=== PATIENT | female | born 1930 | race Hispanic/Latino ===

== ENCOUNTER 2018-06-01 11:56 | Inpatient (IN) | payer MEDICARE ==
--- NOTE | 2018-06-01 12:43 | Emergency Department Report ---
ED Abdominal Pain HPI - General Chief Complaint: Extremity Problem,Nontraumatic Stated Complaint: BACK PAIN Time Seen by Provider: 06/01/18 12:38 Source: patient, EMS Mode of arrival: Stretcher Limitations: No Limitations - History of Present Illness Initial Comments: She is an 88-year-old female that presents to emergency room with complaints of left groin pain and pelvic pain. Patient states pain is radiating to her left thigh. Patient states pain is 10 out of 10. Patient states the pain is worsening. Patient states she is unable to family. Patient states she has had this pain off and on for a few weeks but now is consistent in stopping her from being able to walk. Patient states she needed to get help in order to get to the bathroom. Patient cannot place any pressure on her left leg. Patient came in by EMS due to the pain. MD Complaint: other (groin and pelvic pain) -: Sudden Radiation: LLQ Migration to: no migration Severity: severe Severity scale (0 -10): 10 Quality: stabbing Consistency: constant Improves With: rest Worsens With: movement Associated Symptoms: denies: nausea, vomiting, diarrhea, fever, chills, constipation, dysuria, hematemesis, hematochezia, melena, hematuria, anorexia, syncope Treatments Prior to Arrival: NSAIDs, prescription analgesics - Related Data LMP (females 10-50): other Home Medications Medication Instructions Recorded Confirmed Last Taken Diclofenac EC [Voltaren] 25 mg PO Q8HR 06/01/18 06/01/18 06/01/18 08:00 HYDROcodone/APAP 5-325 [[place] 1 each PO Q8HR PRN 06/01/18 06/01/18 05/31/18 20:00 5/325] chlordiazePOXIDE [Librium] 10 mg PO TID 06/01/18 06/01/18 05/31/18 13:30 traMADol [Ultram] 75 mg PO Q12HR PRN 06/01/18 06/01/18 04/25/18 Allergies Allergy/AdvReac Type Severity Reaction Status Date / Time No Known Allergies Allergy Verified 06/01/18 12:28 ED Review of Systems ROS: Stated complaint: BACK PAIN Other details as noted in HPI Constitutional: denies: chills, fever Eyes: denies: eye pain, eye discharge, vision change ENT: denies: ear pain, throat pain Respiratory: denies: cough, shortness of breath, wheezing Cardiovascular: denies: chest pain, palpitations Endocrine: no symptoms reported Gastrointestinal: abdominal pain. denies: nausea, diarrhea Genitourinary: denies: urgency, dysuria, discharge Musculoskeletal: denies: back pain, joint swelling, arthralgia Skin: denies: rash, lesions Neurological: denies: headache, weakness, paresthesias Psychiatric: denies: anxiety, depression Hematological/Lymphatic: denies: easy bleeding, easy bruising ED Past Medical Hx - Past Medical History Previous Medical History?: Yes Hx Hypertension: Yes - Surgical History Past Surgical History?: Yes Hx Cholecystectomy: Yes Hx Appendectomy: Yes Additional Surgical History: Hx of tachycardia. - Social History Smoking Status: Current Every Day Smoker Substance Use Type: None - Medications Home Medications: Home Medications Medication Instructions Recorded Confirmed Last Taken Type Diclofenac EC [Voltaren] 25 mg PO Q8HR 06/01/18 06/01/18 06/01/18 08:00 History HYDROcodone/APAP 5-325 [[place] 1 each PO Q8HR PRN 06/01/18 06/01/18 05/31/18 20:00 History 5/325] chlordiazePOXIDE [Librium] 10 mg PO TID 06/01/18 06/01/18 05/31/18 13:30 History traMADol [Ultram] 75 mg PO Q12HR PRN 06/01/18 06/01/18 04/25/18 History ED Physical Exam - General Limitations: No Limitations General appearance: alert, in no apparent distress - Head Head exam: Present: atraumatic, normocephalic - Eye Eye exam: Present: normal appearance - ENT ENT exam: Present: mucous membranes moist - Neck Neck exam: Present: normal inspection - Respiratory Respiratory exam: Present: normal lung sounds bilaterally. Absent: respiratory distress - Cardiovascular Cardiovascular Exam: Present: regular rate, normal rhythm. Absent: systolic murmur, diastolic murmur, rubs, gallop - GI/Abdominal GI/Abdominal exam: Present: soft, tenderness (left pelvic tenderness on palpation and left hip tenderness), normal bowel sounds - Extremities Exam Extremities exam: Present: normal inspection - Back Exam Back exam: Present: normal inspection - Neurological Exam Neurological exam: Present: alert, oriented X3 - Psychiatric Psychiatric exam: Present: normal affect, normal mood - Skin Skin exam: Present: warm, dry, intact, normal color. Absent: rash ED Course Vital Signs 06/01/18 06/01/18 06/01/18 12:00 12:11 12:15 Temperature 97.9 F Pulse Rate 78 77 Respiratory 25 H 22 20 Rate Blood Pressure 127/67 148/61 Blood Pressure 127/67 [Right] O2 Sat by Pulse 100 100 100 Oximetry 06/01/18 06/01/18 06/01/18 12:30 12:45 13:00 Temperature Pulse Rate 75 71 71 Respiratory 18 15 19 Rate Blood Pressure 152/58 161/63 158/59 Blood Pressure [Right] O2 Sat by Pulse 99 99 96 Oximetry 06/01/18 06/01/18 06/01/18 13:15 13:30 13:45 Temperature Pulse Rate 75 75 71 Respiratory 23 21 16 Rate Blood Pressure 149/58 142/61 149/56 Blood Pressure [Right] O2 Sat by Pulse 97 97 93 Oximetry 06/01/18 06/01/18 06/01/18 14:00 14:15 14:27 Temperature 97.9 F Pulse Rate 76 76 76 Respiratory 20 14 14 Rate Blood Pressure 131/59 144/69 Blood Pressure 144/69 [Right] O2 Sat by Pulse 97 96 96 Oximetry 06/01/18 06/01/18 06/01/18 16:29 16:30 16:45 Temperature Pulse Rate 78 74 75 Respiratory 17 16 20 Rate Blood Pressure 145/60 145/60 145/60 Blood Pressure 139/69 [Right] O2 Sat by Pulse 98 94 96 Oximetry 06/01/18 06/01/18 06/01/18 17:00 17:15 17:30 Temperature Pulse Rate 76 81 84 Respiratory 16 14 13 Rate Blood Pressure 155/70 155/70 139/69 Blood Pressure [Right] O2 Sat by Pulse 97 98 97 Oximetry 06/01/18 18:00 Temperature 97.9 F Pulse Rate 84 Respiratory 13 Rate Blood Pressure Blood Pressure 139/69 [Right] O2 Sat by Pulse 97 Oximetry - Reevaluation(s) Reevaluation #1: Discussed all results with patient. Patient admitted to the hospital service. Patient agrees with plan of care. 06/01/18 16:16 - Consultations Consultation #1: Hospice consultation for admission. Hospitalist to admit patient 06/01/18 16:17 ED Medical Decision Making - Lab Data Result diagrams: 06/01/18 13:30 06/01/18 13:30 - Radiology Data Radiology results: report reviewed CT ABDOMEN AND PELVIS WITH CONTRAST INDICATION: Abdominal pain. COMPARISON: None similar at this institution. FINDINGS: Abdomen and pelvis CT performed following intravenous administration of 100 cc of Omnipaque 300. LUNG BASES: Increased AP chest diameter/COPD. Mild left basilar scarring or atelectasis. Approximately 2.8 cm right lower lobe consolidation posteriorly also noted, axial image 34, series 2, nonspecific for scarring/atelectasis versus an underlying mass. Coronary and aortic atherosclerotic calcifications. Mild nonspecific distal esophageal prominence/thickening. ABDOMEN: Post cholecystectomy biliary tree appearance/prominence with CBD caliber at the lacey hepatis approximately 1 cm. Otherwise unremarkable liver, spleen, pancreas, adrenals, IVC and nonhydronephrotic kidneys. Few left upper to mid renal cortical hypodensities measuring up to 0.7 cm. Nonaneurysmal though slightly ectatic mid to distal abdominal aorta with diffuse atherosclerotic aortoiliac calcifications. No ascites or size significant adenopathy. Nonopacified GI tract evaluation limited, though grossly nonobstructive. Small fat containing umbilical hernia with a transverse neck of 7 mm. Appendectomy changes in the right lower quadrant. Mild distal descending colon/proximal sigmoid diverticulosis. PELVIS: Rectosigmoid stool. Unremarkable urinary bladder and grossly age-appropriate uterus. No free fluid or significant adenopathy. Bilateral inguinal canal region fatty hernia-like prominence with approximately 3.4 cm diameter as on axial image 173, series 2. Subtle asymmetric stranding/prominence noted along the left obturator internus as also the left acetabulum medially as on axial images 153-173. Demineralized bones with multilevel spinal degenerative changes, including lower thoracic spurring and lower lumbar facet arthropathy. However, a large lytic hyperdense lesion involves/replaces the left acetabulum posteroinferiorly up to the ischial tuberosity as on axial images 155-185. It measures approximately 3.8 x 3.9 cm as on axial image 169, series 2 and approximately 6.2 cm craniocaudal and also demonstrates a small soft tissue component inferiorly. CONCLUSION: 1. Large lytic lesion involving/replacement of the left posterior acetabulum and ischium inferiorly up to the ischial tuberosity, as detailed above. Metastatic/neoplastic process primarily suspected and may also be correlated for clinically and with prior relevant imaging, if available. 2. Right lung base masslike consolidation in the lower lobe posteriorly also seen, nonspecific for benign scarring versus neoplasm, though latter remains to be excluded in light of above findings. These would also be amenable to percutaneous biopsy or workup further as with PET-CT, as warranted. 3. No acute abdominal CT abnormality with various other incidental findings, as described. - Medical Decision Making Patient is an 88-year-old female that presents to [facility] with extreme left pelvic and hip pain. Patient found to have a lytic lesion on CT scan. Patient admitted to the hospitalist service. Patient found to have a pulmonary nodule.. She came is unable to ambulate. Patient wants to be admitted. patient to be admitted to the hospitalist service. - Differential Diagnosis unable to ambulate. The pain. Hip pain. Leg pain. Critical care attestation.: If time is entered above; I have spent that time in minutes in the direct care of this critically ill patient, excluding procedure time. ED Disposition Clinical Impression: Unable to ambulate, Pelvic pain, Lytic lesion of bone on x-ray, Intractable abdominal pain Leg pain Qualifiers: Laterality: left Qualified Code(s): M79.605 - Pain in left leg Disposition: OP ADMIT IP TO THIS HOSP Is pt being admited?: Yes Does the pt Need Aspirin: No Condition: Serious Time of Disposition: 16:20
[2018-06-01 13:41] LABS: Bacteria,Urine 1+ /HPF (Negative); Bilirubin,Urine NEG (Negative); Blood,Urine NEG (Negative); Color,Urine Yellow (Yellow); Protein,Urine <15 mg/dL mg/dL (Negative); RBC,Urine < 1.0 /HPF (0.0-6.0); Urobilinogen,Urine < 2.0 mg/dL (<2.0)
[2018-06-01 13:42] LABS: Basophils # (Auto) 0.1 K/mm3 (0.0-0.1); Basophils % (Auto) 1.2 % (0.0-1.8); Eosinophils # (Auto) 0.1 K/mm3 (0.0-0.4); Eosinophils % (Auto) 1.3 % (0.0-4.3); Hematocrit 43.9 % (30.3-42.9); Hemoglobin 14.8 gm/dl (10.1-14.3); Lymphocytes # (Auto) 1.5 K/mm3 (1.2-5.4); Lymphocytes % (Auto) 13.3 % (13.4-35.0); Mean Corpuscular HGB Conc 34 % (30-34); Mean Corpuscular Volume 84 fl (79-97); Monocytes # (Auto) 1.1 K/mm3 (0.0-0.8); Monocytes % (Auto) 9.6 % (0.0-7.3); Platelet Count 424 K/mm3 (140-440); Red Blood Count 5.23 M/mm3 (3.65-5.03); Red Cell Distribution Width 14.4 % (13.2-15.2)
[2018-06-01 14:00] LABS: Alanine Aminotransferase 40 units/L (7-56); Albumin 3.9 g/dL (3.9-5); BUN/Creatinine Ratio 22; Bilirubin,Direct < 0.2 mg/dL (0-0.2); Blood Urea Nitrogen 13 mg/dL (7-17); Hemolysis Index 8
--- NOTE | 2018-06-01 15:04 | Cat Scan Report ---
CT ABDOMEN AND PELVIS WITH CONTRAST INDICATION: Abdominal pain. COMPARISON: None similar at this institution. FINDINGS: Abdomen and pelvis CT performed following intravenous administration of 100 cc of Omnipaque 300. LUNG BASES: Increased AP chest diameter/COPD. Mild left basilar scarring or atelectasis. Approximately 2.8 cm right lower lobe consolidation posteriorly also noted, axial image 34, series 2, nonspecific for scarring/atelectasis versus an underlying mass. Coronary and aortic atherosclerotic calcifications. Mild nonspecific distal esophageal prominence/thickening. ABDOMEN: Post cholecystectomy biliary tree appearance/prominence with CBD caliber at the lacey hepatis approximately 1 cm. Otherwise unremarkable liver, spleen, pancreas, adrenals, IVC and nonhydronephrotic kidneys. Few left upper to mid renal cortical hypodensities measuring up to 0.7 cm. Nonaneurysmal though slightly ectatic mid to distal abdominal aorta with diffuse atherosclerotic aortoiliac calcifications. No ascites or size significant adenopathy. Nonopacified GI tract evaluation limited, though grossly nonobstructive. Small fat containing umbilical hernia with a transverse neck of 7 mm. Appendectomy changes in the right lower quadrant. Mild distal descending colon/proximal sigmoid diverticulosis. PELVIS: Rectosigmoid stool. Unremarkable urinary bladder and grossly age-appropriate uterus. No free fluid or significant adenopathy. Bilateral inguinal canal region fatty hernia-like prominence with approximately 3.4 cm diameter as on axial image 173, series 2. Subtle asymmetric stranding/prominence noted along the left obturator internus as also the left acetabulum medially as on axial images 153-173. Demineralized bones with multilevel spinal degenerative changes, including lower thoracic spurring and lower lumbar facet arthropathy. However, a large lytic hyperdense lesion involves/replaces the left acetabulum posteroinferiorly up to the ischial tuberosity as on axial images 155-185. It measures approximately 3.8 x 3.9 cm as on axial image 169, series 2 and approximately 6.2 cm craniocaudal and also demonstrates a small soft tissue component inferiorly. CONCLUSION: 1. Large lytic lesion involving/replacement of the left posterior acetabulum and ischium inferiorly up to the ischial tuberosity, as detailed above. Metastatic/neoplastic process primarily suspected and may also be correlated for clinically and with prior relevant imaging, if available. 2. Right lung base masslike consolidation in the lower lobe posteriorly also seen, nonspecific for benign scarring versus neoplasm, though latter remains to be excluded in light of above findings. These would also be amenable to percutaneous biopsy or workup further as with PET-CT, as warranted. 3. No acute abdominal CT abnormality with various other incidental findings, as described. Thank you for the opportunity to participate in this patient's care.
[2018-06-02] MEDS ORDERED: TYLENOL PO PRN ×2 (01:47→06:53)
[2018-06-02] MEDS ORDERED: SODIUM CHLORIDE FLUSH SYRINGE 10 ML IV PRN (06:53)
--- NOTE | 2018-06-02 06:58 | Event Note ---
Date: 06/01/18 See H/p in reports Lytic lesion L Hip Lung mass
[2018-06-02] MEDS ORDERED: NACL 0.9% 1000 ML 1,000 ML IV SCH (07:00)
[2018-06-02 07:27] LABS: Basophils # (Auto) 0.2 K/mm3 (0.0-0.1); Basophils % (Auto) 1.5 % (0.0-1.8); Eosinophils # (Auto) 0.6 K/mm3 (0.0-0.4); Hematocrit 42.3 % (30.3-42.9); Lymphocytes # (Auto) 2.2 K/mm3 (1.2-5.4); Lymphocytes % (Auto) 18.4 % (13.4-35.0); Mean Corpuscular HGB Conc 33 % (30-34); Mean Corpuscular Volume 85 fl (79-97); Monocytes # (Auto) 1.2 K/mm3 (0.0-0.8); Platelet Count 422 K/mm3 (140-440); Red Blood Count 4.95 M/mm3 (3.65-5.03); Red Cell Distribution Width 14.8 % (13.2-15.2)
--- NOTE | 2018-06-02 07:31 | Progress Note ---
Assessment and Plan Assessment and plan: Patient is a 88 yo woman with history of OA, hypertension, chronic tachycardia and Tobacco dependency who presented to [facility] ED (first visit in EMR) with left groin pains and inability to ambulate hence the inpatient admission. He was found to have the following: * CT abd/pelvis with contrast CONCLUSION: 1. Large lytic lesion involving/replacement of the left posterior acetabulum and ischium inferiorly up to the ischial tuberosity, as detailed above. Metastatic/neoplastic process primarily suspected and may also be correlated for clinically and with prior relevant imaging, if available. 2. Right lung base masslike (2.8 cm) consolidation in the lower lobe posteriorly also seen, nonspecific for benign scarring versus neoplasm, though latter remains to be excluded in light of above findings. These would also be amenable to percutaneous biopsy or workup further as with PET-CT, as warranted. 3. No acute abdominal CT abnormality with various other incidental findings, as described. 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 Sanches Heme/Onc=-=>consult Dr. Jones -SIRS with organ dysfunction, poa from suspect metastatic cancer -Hyponatremia due the dehydration: treat with IVF -Metabolic acidosis, due to above -Suspect RLL Lung cancer: Consult and d/w Heme/Onc or pulmonary, on empiric levaquin for pna, add IVF for renal protection due to contrast dye administrati on. 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 Follow-up on current diagnosis of Left groin pains. Overnight uneventful. Patient denies any chest pain, shortness breath, nausea/vomiting or severe headaches. Imaging, nursing note, chart, labs and old chart reviewed. Discussed with patient. Hospitalist Physical - Physical exam Narrative exam: Gen: WDWN, NAD, Awake, Alert, Orientated HEENT: NCAT, EOMI, PERRL, OP Clear Neck: supple, no adenopathy, no thyromegaly, no JVD CVS/Heart: RRR, normal S1S2, pulses present bilaterally Chest/Lungs: diminished bs bilateral, Symmetrical chest expansion, good air entry bilaterally GI/Abdomen: soft, NTND, good bowel sounds, no guarding or rebound /Bladder: no suprapubic tenderness, no CVA or paraspinal tenderness Extermity/Skin: no c/c/e, no obvious rash MSK: FROM x 4 Neuro: CN 2-12 grossly intact, no new focal deficits Psych: calm - Constitutional Vitals: Temp Pulse Resp BP Pulse Ox 97.9 F 84 20 145/64 95 06/02/18 02:45 06/02/18 02:45 06/02/18 02:45 06/02/18 02:45 06/02/18 02:45 Results - Labs CBC & Chem 7: 06/02/18 07:18 06/02/18 07:18 Labs: Laboratory Last Values WBC 11.1 K/mm3 (4.5-11.0) H 06/01/18 13:30 RBC 5.23 M/mm3 (3.65-5.03) H 06/01/18 13:30 Hgb 14.8 gm/dl (10.1-14.3) H 06/01/18 13:30 Hct 43.9 % (30.3-42.9) H 06/01/18 13:30 MCV 84 fl (79-97) 06/01/18 13:30 MCH 28 pg (28-32) 06/01/18 13:30 MCHC 34 % (30-34) 06/01/18 13:30 RDW 14.4 % (13.2-15.2) 06/01/18 13:30 Plt Count 424 K/mm3 (140-440) 06/01/18 13:30 Lymph % (Auto) 13.3 % (13.4-35.0) L 06/01/18 13:30 Saunders % (Auto) 9.6 % (0.0-7.3) H 06/01/18 13:30 Eos % (Auto) 1.3 % (0.0-4.3) 06/01/18 13:30 Baso % (Auto) 1.2 % (0.0-1.8) 06/01/18 13:30 Lymph # 1.5 K/mm3 (1.2-5.4) 06/01/18 13:30 Saunders # 1.1 K/mm3 (0.0-0.8) H 06/01/18 13:30 Eos # 0.1 K/mm3 (0.0-0.4) 06/01/18 13:30 Baso # 0.1 K/mm3 (0.0-0.1) 06/01/18 13:30 Seg Neutrophils % 74.6 % (40.0-70.0) H 06/01/18 13:30 Seg Neutrophils # 8.3 K/mm3 (1.8-7.7) H 06/01/18 13:30 Sodium 134 mmol/L (137-145) L 06/01/18 13:30 Potassium 3.8 mmol/L (3.6-5.0) 06/01/18 13:30 Chloride 97.6 mmol/L (98-107) L 06/01/18 13:30 Carbon Dioxide 20 mmol/L (22-30) L 06/01/18 13:30 Anion Gap 20 mmol/L 06/01/18 13:30 BUN 13 mg/dL (7-17) 06/01/18 13:30 Creatinine 0.6 mg/dL (0.7-1.2) L 06/01/18 13:30 Estimated GFR > 60 ml/min 06/01/18 13:30 BUN/Creatinine Ratio 22 % 06/01/18 13:30 Glucose 92 mg/dL (65-100) 06/01/18 13:30 Calcium 10.0 mg/dL (8.4-10.2) 06/01/18 13:30 Total Bilirubin 0.40 mg/dL (0.1-1.2) 06/01/18 13:30 Direct Bilirubin < 0.2 mg/dL (0-0.2) 06/01/18 13:30 AST 32 units/L (5-40) 06/01/18 13:30 ALT 40 units/L (7-56) 06/01/18 13:30 Alkaline Phosphatase 130 units/L (35-129) H 06/01/18 13:30 Total Protein 7.5 g/dL (6.3-8.2) 06/01/18 13:30 Albumin 3.9 g/dL (3.9-5) 06/01/18 13:30 Albumin/Globulin Ratio 1.1 % 06/01/18 13:30 Urine Color Yellow (Yellow) 06/01/18 13:10 Urine Turbidity Slightly-cloudy (Clear) 06/01/18 13:10 Urine pH 7.0 (5.0-7.0) 06/01/18 13:10 Ur Specific Marshall 1.004 (1.003-1.030) 06/01/18 13:10 Urine Protein <15 mg/dl mg/dL (Negative) 06/01/18 13:10 Urine Glucose (UA) Neg mg/dL (Negative) 06/01/18 13:10 Urine Ketones Tr mg/dL (Negative) 06/01/18 13:10 Urine Blood Neg (Negative) 06/01/18 13:10 Urine Nitrite Neg (Negative) 06/01/18 13:10 Urine Bilirubin Neg (Negative) 06/01/18 13:10 Urine Urobilinogen < 2.0 mg/dL (<2.0) 06/01/18 13:10 Ur Leukocyte Esterase Tr (Negative) 06/01/18 13:10 Urine WBC (Auto) 2.0 /HPF (0.0-6.0) 06/01/18 13:10 Urine RBC (Auto) < 1.0 /HPF (0.0-6.0) 06/01/18 13:10 U Epithel Cells (Auto) 14.0 /HPF (0-13.0) H 06/01/18 13:10 Urine Bacteria (Auto) 1+ /HPF (Negative) 06/01/18 13:10
--- NOTE | 2018-06-02 07:33 | History and Physical Report ---
CHIEF COMPLAINT: Left hip pain for a couple of days. HISTORY OF PRESENT ILLNESS: An 88-year-old female brought to the Emergency Room by the for inability to walk. Also, pain in the left hip, about 10/ 10. The patient used to walk until a couple of weeks ago. Since then, the patient has stopped walking. Needs help in getting around to the bathroom. For the last 2 days, unable to walk totally. Pain is 10/10 in the left hip region. No fall. No trauma. PAST MEDICAL HISTORY: Significant for hypertension. PAST SURGICAL HISTORY: Cholecystectomy and appendectomy. SOCIAL HISTORY: Smokes regularly, about half a pack a day. FAMILY HISTORY: Hypertension. REVIEW OF SYSTEMS: Significant for severe left hip pain, 10/10 and inability to walk for the last 2 days. Difficulty walking for the last 2-3 weeks. PHYSICAL EXAMINATION: GENERAL: Elderly female, lying in bed, in no acute distress. VITAL SIGNS: Blood pressure is 139/69, temperature is 97.9, pulse is 84, respirations are 13. HEENT: Unremarkable. Pupils are equal and reactive. NECK: Supple, no lymphadenopathy, no thyromegaly. LUNGS: Clear to auscultation and percussion. Good air entry. CARDIOVASCULAR: S1, S2 heard. No gallop, no murmur, no rub. Apical impulse in left fifth intercostal space and midclavicular line. ABDOMEN: Soft and benign. No hepatosplenomegaly. No guarding, no rigidity. Hernial orifices are normal. EXTREMITIES: Decreased range of motion at the left hip joint. Pulses are well felt. CENTRAL NERVOUS SYSTEM: Alert and oriented x 4. LABORATORY DATA: Significant for white count of 11,100, H and H is 14.8 and 43.9, platelet count is 424,000. Sodium is 134, potassium is 3.8, BUN and creatinine 13 and 0.6, alkaline phosphatase is 130. Urine is negative. Epithelial cells 14.0. CT of the abdomen and pelvis shows large lytic lesion involving the left posterior acetabulum and it came inferiorly after ischial tuberosity and metastatic by neoplastic process primarily suspected and may also be correlated for clinically and with prior relevant imaging if available. Right lung base mass-like consolidation in the lower lobe posteriorly. Nonspecific for benign scarring versus neoplasm. These should also be amenable for percutaneous biopsy or workup further with PET scan. CT as warranted. No acute abdominal CAT scan or CT abnormality. ASSESSMENT AND PLAN: 1. Left hip lytic lesion, possible high probability of cancer, primary versus metastatic lesion. Orthopedic consult requested. Pain management for now. 2. Lung mass. A CT of the chest ordered for further delineation of the cancer. 3. 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 The lung mass may be amenable for first the CT chest and then the CT-guided biopsy. 4. Hypertension. Continue antihypertensives. 5. Pain control. Continue pain management. 6. Deep venous thrombosis prophylaxis, Lovenox 40 mg subcutaneous daily. Orthopedics and Oncology consult requested. JOB# [id number] JEFF/LOPEZ MCMILLAN
[2018-06-02 07:56] LABS: Alanine Aminotransferase 30 units/L (7-56); Albumin 3.6 g/dL (3.9-5); BUN/Creatinine Ratio 20; Blood Urea Nitrogen 12 mg/dL (7-17); Calcium 10.2 mg/dL (8.4-10.2); Hemolysis Index 13
[2018-06-02] MEDS ORDERED: DUONEB *Not for PRN Use IH SCH ×2 (08:00)
[2018-06-02] MEDS: DILAUDID IV PRN (08:34)
[2018-06-02] MEDS: LEVAQUIN 750MG/150ML 750 MG/150 ML BAG IV SCH (08:34)
[2018-06-02] MEDS: NACL 0.9% 1000 ML 1,000 ML IV SCH (08:44)
[2018-06-02] MEDS ORDERED: PROVENTIL IH PRN (09:21)
[2018-06-02] MEDS ORDERED: PEPCID PO SCH (10:00)
[2018-06-02] MEDS ORDERED: LEVAQUIN 750MG/150ML 750 MG/150 ML BAG IV SCH (10:00)
[2018-06-02] MEDS: SODIUM CHLORIDE FLUSH SYRINGE 10 ML IV SCH ×2 (10:05→23:13)
[2018-06-02] MEDS: PEPCID PO SCH ×2 (10:05→23:10)
[2018-06-02] MEDS ORDERED: AFLURIA QUAD 2018-2019 SYRINGE IM ONE (12:00)
--- NOTE | 2018-06-02 13:31 | Consultation ---
History of Present Illness - HPI Consult date: 06/02/18 Consult reason: joint pain History of present illness: 88 y/o female with c/o left groin pain, and hx of CA...asked to evaluate regarding CT scan findings from pelvis Medications and Allergies Allergies Allergy/AdvReac Type Severity Reaction Status Date / Time No Known Allergies Allergy Verified 06/01/18 12:28 Home Medications Medication Instructions Recorded Confirmed Last Taken Type Diclofenac EC [Voltaren] 25 mg PO Q8HR 06/01/18 06/01/18 06/01/18 08:00 History HYDROcodone/APAP 5-325 [[place] 1 each PO Q8HR PRN 06/01/18 06/01/18 05/31/18 20:00 History 5/325] chlordiazePOXIDE [Librium] 10 mg PO TID 06/01/18 06/01/18 05/31/18 13:30 History traMADol [Ultram] 75 mg PO Q12HR PRN 06/01/18 06/01/18 04/25/18 History Active Meds: Active Medications Acetaminophen (Tylenol) 650 mg PO Q4H PRN PRN Reason: Pain MILD(1-3)/Fever >100.5/GAMA Albuterol (Proventil) 2.5 mg IH Q4HRT PRN PRN Reason: Shortness Of Breath Albuterol/Ipratropium (Duoneb *Not For Prn Use*) 1 ampul IH TIDRT [facility] Enoxaparin Sodium (Lovenox) 40 mg SUB-Q QDAY@2200 [facility] Famotidine (Pepcid) 10 mg PO BID [facility] Last Admin: 06/02/18 10:05 Dose: 10 mg Documented by: Hydromorphone HCl (Dilaudid) 0.5 mg IV Q3H PRN PRN Reason: Pain , Severe (7-10) Last Admin: 06/02/18 08:34 Dose: 0.5 mg Documented by: Levofloxacin/Dextrose (Levaquin 750mg/150ml) 750 mg in 150 mls @ 100 mls/hr IV Q24H [facility]; Protocol Last Admin: 06/02/18 08:34 Dose: 100 mls/hr Documented by: Sodium Chloride (Nacl 0.9% 1000 Ml) 1,000 mls @ 100 mls/hr IV DIRECT [facility] Last Admin: 06/02/18 08:44 Dose: 100 mls/hr Documented by: Ondansetron HCl (Zofran) 4 mg IV Q8H PRN PRN Reason: Nausea And Vomiting Oxycodone/Acetaminophen (Percocet 5/325) 1 tab PO Q6H PRN PRN Reason: Pain, Moderate (4-6) Sodium Chloride (Sodium Chloride Flush Syringe 10 Ml) 10 ml IV BID [facility] Last Admin: 06/02/18 10:05 Dose: 10 ml Documented by: Sodium Chloride (Sodium Chloride Flush Syringe 10 Ml) 10 ml IV PRN PRN PRN Reason: LINE FLUSH Physical Examination - Physical exam Narrative exam: left hip - decreased passive ROM, tender at groin area, no swelling palpable, distal n/v intact plain xrays pelvis - lytic lesion seen at left ischium Eyes: PERRL ENT: Positive: clear oral mucosa Respiratory effort: normal Respiratory: bilateral: CTA Rhythm: regular Heart Sounds: Positive: S1 & S2 General gastrointestinal: Positive: soft, non-tender, non-distended, normal bowel sounds Integumentary: clear, warm, dry Neurologic: Positive: CNII-XII intact, moves all extremities, gait normal. Negative: focal deficits - Cervical Spine Neck pain: none Tenderness with palpation: none Full ROM: yes ROM: flexion: normal ROM: extension: normal ROM: rotation right: normal ROM: rotation left: normal ROM: lateral flexion right: normal ROM: lateral flexion left: normal - Lumbar Spine Back pain: none Tenderness with palpation: none Appearance: normal Full ROM: yes ROM: flexion: normal ROM: extension: normal ROM: rotation right: normal ROM: rotation left: normal ROM: lateral flexion right: normal ROM: lateral flexion left: normal Assessment and Plan assesment - bony lytic lesion at left ischium, non-weight bearing portion, femoral head and acetabulum ok recommendation - can mobilize with PT, WBAT left lower extremity
--- NOTE | 2018-06-02 13:36 | XRay Report ---
PELVIS RADIOGRAPH INDICATION: Lytic lesions on CT. COMPARISON: Yesterday's CT. FINDINGS: Single, frontal pelvic radiograph suggests left superior pubic ramus fracture, retrospectively confirmed on CT coronal image 73. Large, approximately 4 cm expansile lytic lesion involving the posteroinferior acetabulum and ischium on the left, extending up to the ischial tuberosity may again be present, though subtle/occult plain radiographically. Mild bilateral acetabular corner degenerative spurring laterally. Intact remainder pelvic articulation, including the hip joints. Normal femoral head contours. Few right hemipelvic surgical clips project over the right SI joint. Nonobstructive bowel gas pattern. Rectosigmoid stool/possible constipation. Lower lumbar degenerative changes. CONCLUSION: 1. Subtle left acetabular fracture noted and may be acute in this patient with known left ischial lytic lesion, as detailed above. 2. Few other findings, as above. Thank you for the opportunity to participate in this patient's care.
--- NOTE | 2018-06-02 14:04 | Consultation ---
History of Present Illness - Reason for Consult Consult date: 06/02/18 lung mass - History of Present Illness Patient is an 88-year-old female who presented with left hip pain and leg pain and was found to have a lytic lesion involving left acetabulum. Patient is artery been seen by orthopedic surgery as well as radiation oncology. On her scan of the abdomen and pelvis, an area of abnormality was found the posterior pleural service of the patient's right lower lung. This has the appearance of rounded atelectasis. However, given the patient's left hip neoplasm, a lung biopsy was ordered. Medications and Allergies Allergies Allergy/AdvReac Type Severity Reaction Status Date / Time No Known Allergies Allergy Verified 06/01/18 12:28 Home Medications Medication Instructions Recorded Confirmed Last Taken Type Diclofenac EC [Voltaren] 25 mg PO Q8HR 06/01/18 06/01/18 06/01/18 08:00 History HYDROcodone/APAP 5-325 [[place] 1 each PO Q8HR PRN 06/01/18 06/01/18 05/31/18 20:00 History 5/325] chlordiazePOXIDE [Librium] 10 mg PO TID 06/01/18 06/01/18 05/31/18 13:30 History traMADol [Ultram] 75 mg PO Q12HR PRN 06/01/18 06/01/18 04/25/18 History Active Meds: Active Medications Acetaminophen (Tylenol) 650 mg PO Q4H PRN PRN Reason: Pain MILD(1-3)/Fever >100.5/GAMA Albuterol (Proventil) 2.5 mg IH Q4HRT PRN PRN Reason: Shortness Of Breath Albuterol/Ipratropium (Duoneb *Not For Prn Use*) 1 ampul IH TIDRT [facility] Enoxaparin Sodium (Lovenox) 40 mg SUB-Q QDAY@2200 [facility] Famotidine (Pepcid) 10 mg PO BID [facility] Last Admin: 06/02/18 10:05 Dose: 10 mg Documented by: Hydromorphone HCl (Dilaudid) 0.5 mg IV Q3H PRN PRN Reason: Pain , Severe (7-10) Last Admin: 06/02/18 08:34 Dose: 0.5 mg Documented by: Levofloxacin/Dextrose (Levaquin 750mg/150ml) 750 mg in 150 mls @ 100 mls/hr IV Q24H [facility]; Protocol Last Admin: 06/02/18 08:34 Dose: 100 mls/hr Documented by: Sodium Chloride (Nacl 0.9% 1000 Ml) 1,000 mls @ 100 mls/hr IV DIRECT [facility] Last Admin: 06/02/18 08:44 Dose: 100 mls/hr Documented by: Ondansetron HCl (Zofran) 4 mg IV Q8H PRN PRN Reason: Nausea And Vomiting Oxycodone/Acetaminophen (Percocet 5/325) 1 tab PO Q6H PRN PRN Reason: Pain, Moderate (4-6) Sodium Chloride (Sodium Chloride Flush Syringe 10 Ml) 10 ml IV BID [facility] Last Admin: 06/02/18 10:05 Dose: 10 ml Documented by: Sodium Chloride (Sodium Chloride Flush Syringe 10 Ml) 10 ml IV PRN PRN PRN Reason: LINE FLUSH Review of Systems All systems: negative Exam - Constitutional Vitals: Temp Pulse Resp BP Pulse Ox 98.0 F 80 18 166/68 95 06/02/18 07:37 06/02/18 10:00 06/02/18 09:35 06/02/18 07:37 06/02/18 09:35 General appearance: Present: no acute distress - EENT Eyes: Present: PERRL, EOM intact ENT: hearing intact - Neck Neck: Present: supple, normal ROM - Respiratory Respiratory effort: normal - Abdominal General gastrointestinal: Present: deferred Female genitourinary: Present: deferred - Rectal Rectal Exam: deferred - Psychiatric Psychiatric: appropriate mood/affect, cooperative Results - Labs CBC & Chem 7: 06/02/18 07:18 06/02/18 07:18 Labs: Abnormal lab results 06/01/18 06/02/18 06/02/18 Range/Units 13:30 07:18 07:18 WBC (4.5-11.0) K/mm3 [place] % (Auto) (0.0-7.3) % Eos % (Auto) (0.0-4.3) % [place] # (0.0-0.8) K/mm3 Eos # (0.0-0.4) K/mm3 Baso # (0.0-0.1) K/mm3 Seg Neutrophils # (1.8-7.7) K/mm3 Sodium 134 L 134 L (137-145) mmol/L Chloride 97.6 L (98-107) mmol/L Carbon Dioxide 20 L 21 L (22-30) mmol/L Creatinine 0.6 L 0.6 L (0.7-1.2) mg/dL Hemoglobin A1c 6.2 H (4-6) % Alkaline Phosphatase 130 H (35-129) units/L Albumin 3.6 L (3.9-5) g/dL 06/02/18 Range/Units 07:18 WBC 12.1 H (4.5-11.0) K/mm3 [place] % (Auto) 10.0 H (0.0-7.3) % Eos % (Auto) 5.0 H (0.0-4.3) % [place] # 1.2 H (0.0-0.8) K/mm3 Eos # 0.6 H (0.0-0.4) K/mm3 Baso # 0.2 H (0.0-0.1) K/mm3 Seg Neutrophils # 7.9 H (1.8-7.7) K/mm3 Sodium (137-145) mmol/L Chloride (98-107) mmol/L Carbon Dioxide (22-30) mmol/L Creatinine (0.7-1.2) mg/dL Hemoglobin A1c (4-6) % Alkaline Phosphatase (35-129) units/L Albumin (3.9-5) g/dL - Imaging and Cardiology CT scan - abdomen: report reviewed, image reviewed CT scan - pelvis: report reviewed, image reviewed Assessment and Plan Patient with a history of left hip lytic lesion and abnormalities in the right lung base. The patient will need a CT scan of her chest with IV contrast. The imaging findings are most consistent with rounded atelectasis however, neoplasm remains a possibility given the patient's presentation.
[2018-06-02] MEDS: DUONEB *Not for PRN Use IH SCH ×2 (14:33→19:57)
--- NOTE | 2018-06-02 16:42 | Cat Scan Report ---
FINAL REPORT EXAM: CT CHEST W CON HISTORY: Rt Lung mass TECHNIQUE: CT examination of the chest after IV contrast PRIORS: None. FINDINGS: Normal cardiac size without pericardial effusion. Coronary artery calcification. Intact normal caliber thoracic aorta with moderate calcified atherosclerotic plaque. 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 M aximum diameter 3.2 cm. Inferior most section suggests there may also be an abdominal aortic aneurysm . It is incompletely visualized. Normal-appearing esophagus. No hilar mass or mediastinal adenopathy. Visible pulmonary arteries are d iffusely patent. A nonspecific, smoothly marginated, low density, simple appearing left renal lesion is statistically most likely a cyst. Degenerative change in the regional skeleton. No evidence of acute fracture. Slight thoracic spine cu rvature with mid right apex. No pneumothorax or pleural effusion. Nonspecific subpleural consolidation is noted in the posteromedial right lower lobe with irregular ma rgins. Approximate size is 2.7 x 3.3 cm. Sagittal dimension approximately 3.2 cm. This may be a focus of rounded atelectasis or pneumonia. Differential includes underlying neoplasm. Nonspecific 5 mm nodule in the lateral right lower lobe, series 3, image 114. 5 mm nonspecific ground-glass nodular opacity in lateral right upper lobe, series 3, image 78. Slight focal pleural thickening with calcification appears chronic in the right upper lobe posteriorl y. Calcified pleural plaque in left lung apex. IMPRESSION: Nonspecific subpleural consolidation with irregular margins in the posterior right lower lobe may ref lect rounded atelectasis and/or pneumonia. 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 S uggestion of abdominal aortic aneurysm, incompletely imaged. Consider follow-up abdominal aortic ultr asound Coronary artery calcification Scattered slight calcified pleural plaques
[2018-06-02] MEDS: PERCOCET 5/325 PO PRN (17:42)
--- NOTE | 2018-06-02 19:38 | Event Note ---
Date: 06/02/18 [id number]
--- NOTE | 2018-06-02 21:53 | Consultation ---
CHIEF COMPLAINT: " PROFILE: This is an 88-year-old woman presenting with a large lytic lesion involving the acetabulum referred for radiation therapy. CONCLUSION: 1. 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 2. History of hypertension. 3. History of cholecystectomy and appendectomy. RECOMMENDATION: We agree with the recommendation proceeding forward with a CT-guided biopsy of the left hip or right lower lung lesion. She will also require a CT scan of the chest to complete her staging. She has a consultation pending with Pulmonary Medicine. After pathology is confirmed, we agree with the recommendation to deliver palliative radiotherapy to the left acetabulum and ischium. We will plan to deliver a dose of 330 Gy in 10 fractions. ASSESSMENT: This is a very pleasant 88-year-old woman who presented to [facility] Emergency Room with inability to walk and left hip pain. A CT scan of the abdomen and pelvis revealed a large lytic lesion involving and replacing the left posterior acetabulum and ischium inferiorly up to the ischial tuberosity. Neoplastic process is suspected. In addition, there was a right lung base mass-like consolidation of the lower lobe posteriorly that was nonspecific benign versus neoplasm. This was amenable to a percutaneous biopsy. Otherwise, no definite evidence of metastatic disease was seen. She is now referred for consultation for radiation. Clinically, the patient has significant pain involving her left hip. She is unable to ambulate. She denies any headache, visual changes, cough, fever, hemoptysis, chest pain, or recent weight loss. PAST MEDICAL HISTORY: 1. 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 2. History of hypertension. 3. History of cholecystectomy. SOCIAL HISTORY: She lives here in [place]. [id number] history. FAMILY HISTORY: Noncontributory. MEDICATIONS: Voltaren, hydrocodone, Librium, Ultram. ALLERGIES: None. REVIEW OF SYSTEMS: CONSTITUTIONAL: Denies any chills, fevers, or weight loss. EYES: Denies eye pain, eye discharge, or vision change. ENT: Denies ear pain or throat pain. RESPIRATORY: Denies cough, shortness of breath, or wheezing. CARDIOVASCULAR: Denies any chest pain or palpitations. GASTROINTESTINAL: Denies any nausea, vomiting, diarrhea, or rectal bleeding. MUSCULOSKELETAL: She does have significant left hip pain. PHYSICAL EXAMINATION: GENERAL: She is an elderly appearing woman in no acute distress. VITAL SIGNS: Blood pressure 152/58, pulse 75 and regular, respirations 18, O2 sat is 99%. ECOG equals 2. Pain equals 6/10. HEENT: Normocephalic, atraumatic. Eyes were clear. NECK: Thin. No adenopathy. LUNGS: Showed a weak inspiratory effort. No spinal or CVA tenderness. CARDIOVASCULAR: Regular rate and rhythm. Faint heart tones. No murmur, gallop, or bruit. ABDOMEN: Flat. No palpable masses. EXTREMITIES: No clubbing, cyanosis, or edema. She has significant pain to the left hip flexion. NEUROLOGIC: Her motor, sensory, and cerebellar exam intact. Cranial nerves 2-12 are grossly intact. DISCUSSION: This is an 88-year-old woman, who presents with a large lytic lesion involving the posterior acetabulum and ischium. She also has a mass-like consolidation in the right lung base. This is suspicious for carcinoma of the lung. There is a consultation pending for Pulmonary Medicine. She will require a CT scan of the chest to complete staging. She will require a biopsy either of the right lower lung lesion or left acetabular lesion to confirm malignancy. If malignancy is confirmed, we agree with the recommendation to deliver palliative radiotherapy to the left acetabulum and ischium. We will plan to deliver dose of 30 Gy in 10 fractions. Risk of radiation including fatigue, pathologic fracture, nausea, vomiting, diarrhea, bone marrow suppression was discussed with the patient. We will follow up on her further evaluation and biopsy results. JOB# [id number] ROGER/LOPEZ
--- NOTE | 2018-06-02 22:51 | XRay Report ---
FINAL REPORT PROCEDURE: XR BONE SURVEY METASTATIC TECHNIQUE: Radiographs of the axial and appendicular skeleton, including lateral skull, lateral cerv ical spine, AP ribs, AP thoracic spine, AP and lateral lumbar spine, AP pelvis, PA and lateral chest, and AP views of the long bones. HISTORY: LYTIC LESION/ Possible mets to other areas. COMPARISON: No prior studies are available for comparison. FINDINGS: Fracture(s): None. Osteoblastic lesions: None. Osteolytic lesions: None. Joint space(s): Degenerative changes are noted involving cervical, thoracic and lumbar spine. Soft tissues: Normal. Bone mineralization: Bones are osteopenic. Foreign bodies: None. IMPRESSION: There is no evidence of metastatic disease
[2018-06-02] MEDS: LOVENOX SUB-Q SCH (23:09)
--- NOTE | 2018-06-03 00:57 | Consultation ---
REFERRING PHYSICIAN: Dr. Maier. REASON FOR CONSULTATION: Lung mass, bone lesion. HISTORY OF PRESENT ILLNESS: I saw the patient, an 88-year-old female who was brought to the Emergency Room by her for not able to walk and pain in the left hip of a 10/10 for a few weeks. The patient says that she has been having difficulty walking since January and has been using a cane/walker. Now, for the last 2 days, she was not able to walk at all. During this admission, a subtle left acetabular fracture was noted. The patient also had a CT chest done. This showed an abnormality in the right lower lobe, 3.3 cm. This could be atelectasis, pneumonia or neoplasm. CT abdomen and pelvis was done, which showed a large lytic lesion in the acetabulum, ischial tuberosity area, metastasis suspected. REVIEW OF SYSTEMS: No headache, no visual disturbances. No ear discharge, no chest pain, no shortness of breath, no abdominal pain, no vomiting, no diarrhea, no dysuria. Left hip pain present. PAST MEDICAL HISTORY: Hypertension. PAST SURGICAL HISTORY: Cholecystectomy, appendectomy. SOCIAL HISTORY: Smokes regularly half pack a day. FAMILY HISTORY: Hypertension. ALLERGIES: None. MEDICATIONS: Includes Tylenol, nebulizers, Lovenox, Levaquin. PHYSICAL EXAMINATION: VITAL SIGNS: Temperature 98, pulse 80, respiration 18, BP 137/65. GENERAL APPEARANCE: No pallor, no icterus. NECK: No neck lymph nodes. HEART: S1, S2. LUNGS: Clear to auscultation. ABDOMEN: Soft. EXTREMITIES: Not able to move left leg due to pain in the hip/pelvis. NEUROLOGIC: Alert, awake, oriented. LABORATORY DATA: White cell 12, hemoglobin 14, MCV 85, platelet 422. Potassium 4, creatinine 0.6, calcium 10.2, albumin 3.6, total protein 7.4. RADIOLOGY: As above. ASSESSMENT AND PLAN: 1. Lung mass. Differential includes neoplasm versus pneumonia. I discussed with the patient regarding biopsy as an option. 2. Left pelvic lesion causing pain and inability to walk. Radiation Oncology has been consulted. Biopsy would help. 3. Calcium 10.2, albumin 3.6, slightly elevated calcium. We will follow this trend of same. 4. Pain issues. 5. History of hypertension. 6. We will follow the patient during inpatient stay. We will see if tissue diagnosis can be obtained. I discussed with Dr. Barrow and he suggested physical therapy evaluation for now. JOB# [id number] VAL/LOPEZ
[2018-06-03 05:56] LABS: Basophils # (Auto) 0.1 K/mm3 (0.0-0.1); Basophils % (Auto) 1.3 % (0.0-1.8); Eosinophils # (Auto) 0.4 K/mm3 (0.0-0.4); Hematocrit 38.8 % (30.3-42.9); Lymphocytes % (Auto) 17.7 % (13.4-35.0); Mean Corpuscular HGB Conc 34 % (30-34); Mean Corpuscular Volume 85 fl (79-97); Monocytes # (Auto) 1.2 K/mm3 (0.0-0.8); Monocytes % (Auto) 10.5 % (0.0-7.3); Platelet Count 379 K/mm3 (140-440); Red Blood Count 4.54 M/mm3 (3.65-5.03); Red Cell Distribution Width 14.6 % (13.2-15.2)
[2018-06-03 06:15] LABS: BUN/Creatinine Ratio 13; Blood Urea Nitrogen 9 mg/dL (7-17); Calcium 9.8 mg/dL (8.4-10.2); Hemolysis Index 7
[2018-06-03] MEDS: PERCOCET 5/325 PO PRN ×3 (08:00→21:03)
[2018-06-03] MEDS: LEVAQUIN 750MG/150ML 750 MG/150 ML BAG IV SCH (08:04)
[2018-06-03] MEDS: DUONEB *Not for PRN Use IH SCH ×3 (09:10→20:00)
[2018-06-03] MEDS: PEPCID PO SCH ×2 (09:45→20:59)
[2018-06-03] MEDS: SODIUM CHLORIDE FLUSH SYRINGE 10 ML IV SCH ×2 (09:46→22:10)
--- NOTE | 2018-06-03 13:01 | Progress Note ---
Assessment and Plan Assessment and plan: Patient is a 88 yo woman with history of OA, hypertension, chronic tachycardia and Tobacco dependency who presented to [facility] ED (first visit in EMR) with left groin pains and inability to ambulate hence the inpatient admission. He was found to have the following: * CT abd/pelvis with contrast CONCLUSION: 1. Large lytic lesion involving/replacement of the left posterior acetabulum and ischium inferiorly up to the ischial tuberosity, as detailed above. Metastatic/neoplastic process primarily suspected and may also be correlated for clinically and with prior relevant imaging, if available. 2. Right lung base masslike (2.8 cm) consolidation in the lower lobe posteriorly also seen, nonspecific for benign scarring versus neoplasm, though latter remains to be excluded in light of above findings. These would also be amenable to percutaneous biopsy or workup further as with PET-CT, as warranted. 3. No acute abdominal CT abnormality with various other incidental findings, as described. 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 Sanches Heme/Onc=-=>consult Dr. Jones -SIRS with organ dysfunction, poa from suspect metastatic cancer -Hyponatremia due the dehydration: treat with IVF -Metabolic acidosis, due to above -Suspect RLL Lung cancer: Consult and d/w Heme/Onc or pulmonary, on empiric levaquin for pna, add IVF for renal protection due to contrast dye administrati on. -Tobacco dependency: alcohol and drug counselor on stopping -Hypertension: low salt diet, antihypertensives -Elevated AP related bone lesion History Interval history: Patient was seen and examined. Follow-up on current diagnosis of Left groin pains. Overnight uneventful. Patient denies any chest pain, shortness breath, nausea/vomiting or severe headaches. Imaging, nursing note, chart, labs and old chart reviewed. Discussed with patient. Hospitalist Physical - Physical exam Narrative exam: Gen: WDWN, NAD, Awake, Alert, Orientated HEENT: NCAT, EOMI, PERRL, OP Clear Neck: supple, no adenopathy, no thyromegaly, no JVD CVS/Heart: RRR, normal S1S2, pulses present bilaterally Chest/Lungs: diminished bs bilateral, Symmetrical chest expansion, good air entry bilaterally GI/Abdomen: soft, NTND, good bowel sounds, no guarding or rebound /Bladder: no suprapubic tenderness, no CVA or paraspinal tenderness Extermity/Skin: no c/c/e, no obvious rash MSK: FROM x 4 Neuro: CN 2-12 grossly intact, no new focal deficits Psych: calm - Constitutional Vitals: Temp Pulse Resp BP Pulse Ox 98.3 F 75 20 152/61 95 06/03/18 07:52 06/03/18 07:52 06/03/18 07:52 06/03/18 07:52 06/03/18 07:52 General appearance: Present: no acute distress Results - Labs CBC & Chem 7: 06/03/18 05:28 06/03/18 05:28 Labs: Laboratory Last Values WBC 11.2 K/mm3 (4.5-11.0) H 06/03/18 05:28 RBC 4.54 M/mm3 (3.65-5.03) 06/03/18 05:28 Hgb 13.0 gm/dl (10.1-14.3) 06/03/18 05:28 Hct 38.8 % (30.3-42.9) 06/03/18 05:28 MCV 85 fl (79-97) 06/03/18 05:28 MCH 29 pg (28-32) 06/03/18 05:28 MCHC 34 % (30-34) 06/03/18 05:28 RDW 14.6 % (13.2-15.2) 06/03/18 05:28 Plt Count 379 K/mm3 (140-440) 06/03/18 05:28 Lymph % (Auto) 17.7 % (13.4-35.0) 06/03/18 05:28 [place] % (Auto) 10.5 % (0.0-7.3) H 06/03/18 05:28 Eos % (Auto) 4.0 % (0.0-4.3) 06/03/18 05:28 Baso % (Auto) 1.3 % (0.0-1.8) 06/03/18 05:28 Lymph # 2.0 K/mm3 (1.2-5.4) 06/03/18 05:28 [place] # 1.2 K/mm3 (0.0-0.8) H 06/03/18 05:28 Eos # 0.4 K/mm3 (0.0-0.4) 06/03/18 05:28 Baso # 0.1 K/mm3 (0.0-0.1) 06/03/18 05:28 Seg Neutrophils % 66.5 % (40.0-70.0) 06/03/18 05:28 Seg Neutrophils # 7.4 K/mm3 (1.8-7.7) 06/03/18 05:28 Sodium 134 mmol/L (137-145) L 06/03/18 05:28 Potassium 4.4 mmol/L (3.6-5.0) 06/03/18 05:28 Chloride 100.2 mmol/L (98-107) 06/03/18 05:28 Carbon Dioxide 21 mmol/L (22-30) L 06/03/18 05:28 Anion Gap 17 mmol/L 06/03/18 05:28 BUN 9 mg/dL (7-17) 06/03/18 05:28 Creatinine 0.7 mg/dL (0.7-1.2) 06/03/18 05:28 Estimated GFR > 60 ml/min 06/03/18 05:28 BUN/Creatinine Ratio 13 % 06/03/18 05:28 Glucose 96 mg/dL (65-100) 06/03/18 05:28 Hemoglobin A1c 6.2 % (4-6) H 06/02/18 07:18 Calcium 9.8 mg/dL (8.4-10.2) 06/03/18 05:28 Total Bilirubin 0.40 mg/dL (0.1-1.2) 06/02/18 07:18 Direct Bilirubin < 0.2 mg/dL (0-0.2) 06/01/18 13:30 AST 19 units/L (5-40) 06/02/18 07:18 ALT 30 units/L (7-56) 06/02/18 07:18 Alkaline Phosphatase 122 units/L (35-129) 06/02/18 07:18 Total Protein 7.4 g/dL (6.3-8.2) 06/02/18 07:18 Albumin 3.6 g/dL (3.9-5) L 06/02/18 07:18 Albumin/Globulin Ratio 0.9 % 06/02/18 07:18 Urine Color Yellow (Yellow) 06/01/18 13:10 Urine Turbidity Slightly-cloudy (Clear) 06/01/18 13:10 Urine pH 7.0 (5.0-7.0) 06/01/18 13:10 Ur Specific [place] 1.004 (1.003-1.030) 06/01/18 13:10 Urine Protein <15 mg/dl mg/dL (Negative) 06/01/18 13:10 Urine Glucose (UA) Neg mg/dL (Negative) 06/01/18 13:10 Urine Ketones Tr mg/dL (Negative) 06/01/18 13:10 Urine Blood Neg (Negative) 06/01/18 13:10 Urine Nitrite Neg (Negative) 06/01/18 13:10 Urine Bilirubin Neg (Negative) 06/01/18 13:10 Urine Urobilinogen < 2.0 mg/dL (<2.0) 06/01/18 13:10 Ur Leukocyte Esterase Tr (Negative) 06/01/18 13:10 Urine WBC (Auto) 2.0 /HPF (0.0-6.0) 06/01/18 13:10 Urine RBC (Auto) < 1.0 /HPF (0.0-6.0) 06/01/18 13:10 U Epithel Cells (Auto) 14.0 /HPF (0-13.0) H 06/01/18 13:10 Urine Bacteria (Auto) 1+ /HPF (Negative) 06/01/18 13:10
[2018-06-03] MEDS: NACL 0.9% 1000 ML 1,000 ML IV SCH (18:27)
[2018-06-03] MEDS: LOVENOX SUB-Q SCH (21:01)
[2018-06-04 04:48] LABS: Hematocrit 38.8 % (30.3-42.9); Hemoglobin 12.9 gm/dl (10.1-14.3); Mean Corpuscular HGB Conc 33 % (30-34); Mean Corpuscular Volume 85 fl (79-97); Platelet Count 373 K/mm3 (140-440); Red Blood Count 4.55 M/mm3 (3.65-5.03); Red Cell Distribution Width 14.7 % (13.2-15.2)
[2018-06-04 05:10] LABS: BUN/Creatinine Ratio 15; Blood Urea Nitrogen 9 mg/dL (7-17); Calcium 9.6 mg/dL (8.4-10.2); Hemolysis Index 5
[2018-06-04] MEDS: ZOFRAN IV PRN (07:27)
[2018-06-04] MEDS: LEVAQUIN 750MG/150ML 750 MG/150 ML BAG IV SCH (07:27)
[2018-06-04] MEDS: NACL 0.9% 1000 ML 1,000 ML IV SCH (07:30)
[2018-06-04] MEDS: DILAUDID IV PRN (07:38)
[2018-06-04] MEDS: SODIUM CHLORIDE FLUSH SYRINGE 10 ML IV SCH ×2 (07:40→21:04)
--- NOTE | 2018-06-04 08:13 | Hem/Onc Progress Note ---
Assessment and Plan 1. Lung mass. Differential includes neoplasm versus pneumonia. I discussed with the patient regarding biopsy as an option. 2. Left pelvic lesion causing pain and inability to walk. Radiation Oncology has been consulted. Biopsy would help. 3. Calcium 10.2, albumin 3.6, slightly elevated calcium. We will follow this trend of same. 4. Pain issues. 5. History of hypertension. 6. We will follow the patient during inpatient stay. We will see if tissue diagnosis can be obtained. I discussed with Dr. Barrow and he suggested physical therapy evaluation for now. 2/3 - pt seen by IR - CT with contrast of chest done - will see if IR can bx the bone or the lung d/w dr Maier - Patient Problems (1) Lytic lesion of bone on x-ray Current Visit: Yes Status: Acute Subjective Date of service: 06/04/18 Objective - Constitutional Vitals: Last Vital Signs Temp 98.5 F 06/04/18 01:59 Pulse 89 06/04/18 01:59 Resp 20 06/04/18 01:59 BP 136/63 06/04/18 01:59 Pulse Ox 95 06/04/18 07:48 Pain Intensity (0-10): 5/10 (left hip) General appearance: mild distress Performance status: 4-completely disabled - EENT Eyes: EOM intact ENT: clear oral mucosa Lymph node exam: negative cervical, negative supraclavicular - Neck Neck: normal ROM - Respiratory Respiratory effort: Positive: normal Respiratory: bilateral: CTA - Cardiovascular Heart Sounds: Present: S1 & S2 Extremities: No edema - Gastrointestinal General gastrointestinal: Present: soft, non-tender Rectal Exam: deferred - Genitourinary Female genitourinary: Present: deferred - Integumentary Integumentary: warm - Musculoskeletal Musculoskeletal: other (left hip pain) - Neurologic Neurologic: other (due to pain - not able to evaluate left hip ) - Labs Lab Results: Laboratory Results - last 24 hr 06/03/18 06/04/18 06/04/18 22:52 04:32 04:32 WBC 10.4 RBC 4.55 Hgb 12.9 Hct 38.8 MCV 85 MCH 28 MCHC 33 RDW 14.7 Plt Count 373 Sodium 136 L Potassium 4.2 Chloride 105.0 Carbon Dioxide 20 L Anion Gap 15 BUN 9 Creatinine 0.6 L Estimated GFR > 60 BUN/Creatinine Ratio 15 Glucose 100 POC Glucose 121 H Calcium 9.6 Medications & Allergies - Medications Allergies/Adverse Reactions: Allergies No Known Allergies Allergy (Verified 06/01/18 12:28) Home Medications: Home Medications Medication Instructions Recorded Confirmed Last Taken Type Diclofenac EC [Voltaren] 25 mg PO Q8HR 06/01/18 06/01/18 06/01/18 08:00 History HYDROcodone/APAP 5-325 [[place] 1 each PO Q8HR PRN 06/01/18 06/01/18 05/31/18 20:00 History 5/325] chlordiazePOXIDE [Librium] 10 mg PO TID 06/01/18 06/01/18 05/31/18 13:30 History traMADol [Ultram] 75 mg PO Q12HR PRN 06/01/18 06/01/18 04/25/18 History Active Medications: Generic Name Dose Route Start Last Admin Trade Name Freq PRN Reason Stop Dose Admin Acetaminophen 650 mg 06/02/18 06:53 Tylenol PO Q4H PRN Pain MILD(1-3)/Fever >100.5/GAMA Albuterol 2.5 mg 06/02/18 09:21 Proventil IH Q4HRT PRN Shortness Of Breath Albuterol/Ipratropium 1 ampul 06/02/18 14:00 06/03/18 20:00 Duoneb *Not For Prn Use* IH 1 ampul TIDRT BRADY Administration Enoxaparin Sodium 40 mg 06/02/18 22:00 06/03/18 21:01 Lovenox SUB-Q 40 mg QDAY@2200 BRADY Administration Famotidine 10 mg 06/02/18 10:00 06/03/18 20:59 Pepcid PO 10 mg BID BRADY Administration Hydromorphone HCl 0.5 mg 06/02/18 06:53 06/04/18 07:38 Dilaudid IV 0.5 mg Q3H PRN Administration Pain , Severe (7-10) Levofloxacin/Dextrose 750 mg in 150 mls @ 100 mls/hr 06/02/18 08:00 06/04/18 07:27 Levaquin 750mg/150ml IV 100 mls/hr Q24H BRADY Administration Protocol Sodium Chloride 1,000 mls @ 75 mls/hr 06/02/18 08:00 06/04/18 07:30 Nacl 0.9% 1000 Ml IV 100 mls/hr DIRECT BRADY Administration Ondansetron HCl 4 mg 06/02/18 06:53 06/04/18 07:27 Zofran IV 4 mg Q8H PRN Administration Nausea And Vomiting Oxycodone/Acetaminophen 1 tab 06/02/18 06:53 06/03/18 21:03 Percocet 5/325 PO 1 tab Q6H PRN Administration Pain, Moderate (4-6) Sodium Chloride 10 ml 06/02/18 10:00 06/03/18 22:10 Sodium Chloride Flush Syringe 10 Ml IV 10 ml BID BRADY Administration Sodium Chloride 10 ml 06/02/18 06:53 Sodium Chloride Flush Syringe 10 Ml IV PRN PRN LINE FLUSH
[2018-06-04] MEDS: DUONEB *Not for PRN Use IH SCH ×3 (08:50→20:27)
[2018-06-04] MEDS: PEPCID PO SCH ×2 (09:59→21:02)
--- NOTE | 2018-06-04 15:04 | Progress Note ---
Assessment and Plan Assessment and plan: Patient is a 88 yo woman with history of OA, hypertension, chronic tachycardia and Tobacco dependency who presented to [facility] ED (first visit in EMR) with left groin pains and inability to ambulate hence the inpatient admission. He was found to have the following: * CT abd/pelvis with contrast CONCLUSION: 1. Large lytic lesion involving/replacement of the left posterior acetabulum and ischium inferiorly up to the ischial tuberosity, as detailed above. Metastatic/neoplastic process primarily suspected and may also be correlated for clinically and with prior relevant imaging, if available. 2. Right lung base masslike (2.8 cm) consolidation in the lower lobe posteriorly also seen, nonspecific for benign scarring versus neoplasm, though latter remains to be excluded in light of above findings. These would also be amenable to percutaneous biopsy or workup further as with PET-CT, as warranted. 3. No acute abdominal CT abnormality with various other incidental findings, as described. 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 Sanches Heme/Onc=-=>consult Dr. Jones -SIRS with organ dysfunction, poa from suspect metastatic cancer -Hyponatremia due the dehydration: treat with IVF -Metabolic acidosis, due to above -Suspect RLL Lung cancer: Consult and d/w Heme/Onc or pulmonary, on empiric levaquin for pna, add IVF for renal protection due to contrast dye administrati on. -Tobacco dependency: aids counselor on stopping -Hypertension: low salt diet, antihypertensives -Elevated AP related bone lesion Will discuss with consultants regarding plan History Interval history: Patient was seen and examined. Follow-up on current diagnosis of Left groin pains. Overnight uneventful. Patient denies any chest pain, shortness breath, nausea/vomiting or severe headaches. Imaging, nursing note, chart, labs and old chart reviewed. Discussed with patient. Hospitalist Physical - Physical exam Narrative exam: Gen: WDWN, NAD, Awake, Alert, Orientated HEENT: NCAT, EOMI, PERRL, OP Clear Neck: supple, no adenopathy, no thyromegaly, no JVD CVS/Heart: RRR, normal S1S2, pulses present bilaterally Chest/Lungs: diminished bs bilateral, Symmetrical chest expansion, good air entry bilaterally GI/Abdomen: soft, NTND, good bowel sounds, no guarding or rebound /Bladder: no suprapubic tenderness, no CVA or paraspinal tenderness Extermity/Skin: no c/c/e, no obvious rash MSK: FROM x 4 Neuro: CN 2-12 grossly intact, no new focal deficits Psych: calm - Constitutional Vitals: Temp Pulse Resp BP Pulse Ox 98.5 F 89 16 136/63 95 06/04/18 01:59 06/04/18 01:59 06/04/18 08:08 06/04/18 01:59 06/04/18 10:00 General appearance: Present: no acute distress Results - Labs CBC & Chem 7: 06/04/18 04:32 06/04/18 04:32 Labs: Laboratory Last Values WBC 10.4 K/mm3 (4.5-11.0) 06/04/18 04:32 RBC 4.55 M/mm3 (3.65-5.03) 06/04/18 04:32 Hgb 12.9 gm/dl (10.1-14.3) 06/04/18 04:32 Hct 38.8 % (30.3-42.9) 06/04/18 04:32 MCV 85 fl (79-97) 06/04/18 04:32 MCH 28 pg (28-32) 06/04/18 04:32 MCHC 33 % (30-34) 06/04/18 04:32 RDW 14.7 % (13.2-15.2) 06/04/18 04:32 Plt Count 373 K/mm3 (140-440) 06/04/18 04:32 Lymph % (Auto) 17.7 % (13.4-35.0) 06/03/18 05:28 [place] % (Auto) 10.5 % (0.0-7.3) H 06/03/18 05:28 Eos % (Auto) 4.0 % (0.0-4.3) 06/03/18 05:28 Baso % (Auto) 1.3 % (0.0-1.8) 06/03/18 05:28 Lymph # 2.0 K/mm3 (1.2-5.4) 06/03/18 05:28 [place] # 1.2 K/mm3 (0.0-0.8) H 06/03/18 05:28 Eos # 0.4 K/mm3 (0.0-0.4) 06/03/18 05:28 Baso # 0.1 K/mm3 (0.0-0.1) 06/03/18 05:28 Seg Neutrophils % 66.5 % (40.0-70.0) 06/03/18 05:28 Seg Neutrophils # 7.4 K/mm3 (1.8-7.7) 06/03/18 05:28 Sodium 136 mmol/L (137-145) L 06/04/18 04:32 Potassium 4.2 mmol/L (3.6-5.0) 06/04/18 04:32 Chloride 105.0 mmol/L (98-107) 06/04/18 04:32 Carbon Dioxide 20 mmol/L (22-30) L 06/04/18 04:32 Anion Gap 15 mmol/L 06/04/18 04:32 BUN 9 mg/dL (7-17) 06/04/18 04:32 Creatinine 0.6 mg/dL (0.7-1.2) L 06/04/18 04:32 Estimated GFR > 60 ml/min 06/04/18 04:32 BUN/Creatinine Ratio 15 % 06/04/18 04:32 Glucose 100 mg/dL (65-100) 06/04/18 04:32 POC Glucose 121 (70-105) H 06/03/18 22:52 Hemoglobin A1c 6.2 % (4-6) H 06/02/18 07:18 Calcium 9.6 mg/dL (8.4-10.2) 06/04/18 04:32 Total Bilirubin 0.40 mg/dL (0.1-1.2) 06/02/18 07:18 Direct Bilirubin < 0.2 mg/dL (0-0.2) 06/01/18 13:30 AST 19 units/L (5-40) 06/02/18 07:18 ALT 30 units/L (7-56) 06/02/18 07:18 Alkaline Phosphatase 122 units/L (35-129) 06/02/18 07:18 Total Protein 7.4 g/dL (6.3-8.2) 06/02/18 07:18 Albumin 3.6 g/dL (3.9-5) L 06/02/18 07:18 Albumin/Globulin Ratio 0.9 % 06/02/18 07:18 Urine Color Yellow (Yellow) 06/01/18 13:10 Urine Turbidity Slightly-cloudy (Clear) 06/01/18 13:10 Urine pH 7.0 (5.0-7.0) 06/01/18 13:10 Ur Specific [place] 1.004 (1.003-1.030) 06/01/18 13:10 Urine Protein <15 mg/dl mg/dL (Negative) 06/01/18 13:10 Urine Glucose (UA) Neg mg/dL (Negative) 06/01/18 13:10 Urine Ketones Tr mg/dL (Negative) 06/01/18 13:10 Urine Blood Neg (Negative) 06/01/18 13:10 Urine Nitrite Neg (Negative) 06/01/18 13:10 Urine Bilirubin Neg (Negative) 06/01/18 13:10 Urine Urobilinogen < 2.0 mg/dL (<2.0) 06/01/18 13:10 Ur Leukocyte Esterase Tr (Negative) 06/01/18 13:10 Urine WBC (Auto) 2.0 /HPF (0.0-6.0) 06/01/18 13:10 Urine RBC (Auto) < 1.0 /HPF (0.0-6.0) 06/01/18 13:10 U Epithel Cells (Auto) 14.0 /HPF (0-13.0) H 06/01/18 13:10 Urine Bacteria (Auto) 1+ /HPF (Negative) 06/01/18 13:10
[2018-06-04] MEDS: PERCOCET 5/325 PO PRN ×2 (15:51→23:07)
[2018-06-04] MEDS: LOVENOX SUB-Q SCH (21:02)
[2018-06-05] MEDS: PERCOCET 5/325 PO PRN ×2 (06:02→17:20)
[2018-06-05] MEDS: DUONEB *Not for PRN Use IH SCH ×3 (07:35→21:26)
--- NOTE | 2018-06-05 07:48 | Hem/Onc Progress Note ---
Assessment and Plan 1. Lung mass. Differential includes neoplasm versus pneumonia. I discussed with the patient regarding biopsy as an option. 2. Left pelvic lesion causing pain and inability to walk. Radiation Oncology has been consulted. Biopsy would help. 3. Calcium 10.2, albumin 3.6, slightly elevated calcium. We will follow this trend of same. 4. Pain issues. 5. History of hypertension. 6. We will follow the patient during inpatient stay. We will see if tissue diagnosis can be obtained. I discussed with Dr. Barrow and he suggested physical therapy evaluation for now. 2/ - pt seen by IR - CT with contrast of chest done - will see if IR can bx the bone or the lung d/w dr Maier 06/05 - will await IR plans - path will guide plans - Patient Problems (1) Lytic lesion of bone on x-ray Current Visit: Yes Status: Acute Subjective Date of service: 06/05/18 Principal diagnosis: lung and pelvic bone lesion Interval history: still has pain issues Objective - Constitutional Vitals: Last Vital Signs Temp 98.3 F 06/04/18 20:06 Pulse 95 H 06/05/18 02:55 Resp 20 06/04/18 20:44 BP 133/62 06/04/18 20:06 Pulse Ox 96 06/05/18 02:55 Pain Intensity (0-10): 2/10 General appearance: mild distress Performance status: 3-limited selfcare - EENT Eyes: EOM intact ENT: clear oral mucosa Lymph node exam: negative cervical - Neck Neck: normal ROM - Respiratory Respiratory effort: Positive: normal Respiratory: bilateral: CTA - Cardiovascular Heart Sounds: Present: S1 & S2 Extremities: No edema - Gastrointestinal General gastrointestinal: Present: soft, non-tender - Genitourinary Female genitourinary: Present: deferred - Integumentary Integumentary: warm - Musculoskeletal Musculoskeletal: other (left pelvic pain) - Neurologic Neurologic: other (left leg pain) - Psychiatric Psychiatric: appropriate mood/affect Medications & Allergies - Medications Allergies/Adverse Reactions: Allergies No Known Allergies Allergy (Verified 06/01/18 12:28) Home Medications: Home Medications Medication Instructions Recorded Confirmed Last Taken Type Diclofenac EC [Voltaren] 25 mg PO Q8HR 06/01/18 06/01/18 06/01/18 08:00 History HYDROcodone/APAP 5-325 [[place] 1 each PO Q8HR PRN 06/01/18 06/01/18 05/31/18 20:00 History 5/325] chlordiazePOXIDE [Librium] 10 mg PO TID 06/01/18 06/01/18 05/31/18 13:30 History traMADol [Ultram] 75 mg PO Q12HR PRN 06/01/18 06/01/18 04/25/18 History Active Medications: Generic Name Dose Route Start Last Admin Trade Name [place] PRN Reason Stop Dose Admin Acetaminophen 650 mg 06/02/18 06:53 Tylenol PO Q4H PRN Pain MILD(1-3)/Fever >100.5/GAMA Albuterol 2.5 mg 06/02/18 09:21 Proventil IH Q4HRT PRN Shortness Of Breath Albuterol/Ipratropium 1 ampul 06/02/18 14:00 06/04/18 20:27 Duoneb *Not For Prn Use* IH 1 ampul TIDRT BRADY Administration Enoxaparin Sodium 40 mg 06/02/18 22:00 06/04/18 21:02 Lovenox SUB-Q 40 mg QDAY@2200 BRADY Administration Famotidine 10 mg 06/02/18 10:00 06/04/18 21:02 Pepcid PO 10 mg BID BRADY Administration Hydromorphone HCl 0.5 mg 06/02/18 06:53 06/04/18 07:38 Dilaudid IV 0.5 mg Q3H PRN Administration Pain , Severe (7-10) Levofloxacin/Dextrose 750 mg in 150 mls @ 100 mls/hr 06/02/18 08:00 06/04/18 08:57 Levaquin 750mg/150ml IV Infused Q24H BRADY Infusion Protocol Sodium Chloride 1,000 mls @ 75 mls/hr 06/02/18 08:00 06/04/18 07:30 Nacl 0.9% 1000 Ml IV 100 mls/hr DIRECT BRADY Administration Ondansetron HCl 4 mg 06/02/18 06:53 06/04/18 07:27 Zofran IV 4 mg Q8H PRN Administration Nausea And Vomiting Oxycodone/Acetaminophen 1 tab 06/02/18 06:53 06/05/18 06:02 Percocet 5/325 PO 1 tab Q6H PRN Administration Pain, Moderate (4-6) Sodium Chloride 10 ml 06/02/18 10:00 06/04/18 21:04 Sodium Chloride Flush Syringe 10 Ml IV 10 ml BID BRADY Administration Sodium Chloride 10 ml 06/02/18 06:53 Sodium Chloride Flush Syringe 10 Ml IV PRN PRN LINE FLUSH
[2018-06-05] MEDS: ZOFRAN IV PRN ×2 (07:49→17:21)
[2018-06-05] MEDS: SODIUM CHLORIDE FLUSH SYRINGE 10 ML IV SCH ×3 (07:53→21:12)
[2018-06-05] MEDS: LEVAQUIN 750MG/150ML 750 MG/150 ML BAG IV SCH (07:56)
[2018-06-05] MEDS: PEPCID PO SCH ×2 (09:17→21:11)
--- NOTE | 2018-06-05 11:07 | Event Note ---
Date: 06/05/18 CT chest reviewed. Patient most likely has rounded atelectasis at the right lung base. Would recommend follow-up in [address] The patient does need biopsy of the left hip lesion. We'll schedule patient for CT-guided biopsy of this lesion tomorrow with either us or diagnostic radiology depending on availability.
--- NOTE | 2018-06-05 11:23 | Progress Note ---
Assessment and Plan Assessment and plan: Patient is a 88 yo woman with history of OA, hypertension, chronic tachycardia and Tobacco dependency who presented to [facility] ED (first visit in EMR) with left groin pains and inability to ambulate hence the inpatient admission. He was found to have the following: * CT abd/pelvis with contrast CONCLUSION: 1. Large lytic lesion involving/replacement of the left posterior acetabulum and ischium inferiorly up to the ischial tuberosity, as detailed above. Metastatic/neoplastic process primarily suspected and may also be correlated for clinically and with prior relevant imaging, if available. 2. Right lung base masslike (2.8 cm) consolidation in the lower lobe posteriorly also seen, nonspecific for benign scarring versus neoplasm, though latter remains to be excluded in light of above findings. These would also be amenable to percutaneous biopsy or workup further as with PET-CT, as warranted. 3. No acute abdominal CT abnormality with various other incidental findings, as described. 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 Sanches Heme/Onc=-=>consult Dr. Jones -SIRS with organ dysfunction, poa from suspect metastatic cancer -Hyponatremia due the dehydration: treat with IVF -Metabolic acidosis, due to above -Suspect RLL Lung cancer: Consult and d/w Heme/Onc or pulmonary, on empiric levaquin for pna, add IVF for renal protection due to contrast dye administrati on. -Tobacco dependency: certified credit counselor on stopping -Hypertension: low salt diet, antihypertensives -Elevated AP related bone lesion d/w Dr. Arevalo the lung mass is most likely rounded atelectasis at the right lung base. Would recommend follow-up in [address] The patient does need biopsy of the left hip lesion. We'll schedule patient for CT-guided biopsy of this lesion tomorrow with either us or diagnostic radiology depending on availability. Plan: left hip bone bx, get pathology then +/- XRT once tissue diagnosis made. patient is ambulating now with PT, I recommended SNF but patient would like therapy at home if possible, but she is opened to SNF if need be. History Interval history: Patient was seen and examined. Follow-up on current diagnosis of Left groin pains. Overnight uneventful. Patient denies any chest pain, shortness breath, nausea/vomiting or severe headaches. Imaging, nursing note, chart, labs and old chart reviewed. Discussed with patient. Hospitalist Physical - Physical exam Narrative exam: Gen: WDWN, NAD, Awake, Alert, Orientated HEENT: NCAT, EOMI, PERRL, OP Clear Neck: supple, no adenopathy, no thyromegaly, no JVD CVS/Heart: RRR, normal S1S2, pulses present bilaterally Chest/Lungs: diminished bs bilateral, Symmetrical chest expansion, good air entry bilaterally GI/Abdomen: soft, NTND, good bowel sounds, no guarding or rebound /Bladder: no suprapubic tenderness, no CVA or paraspinal tenderness Extermity/Skin: no c/c/e, no obvious rash MSK: FROM x 4 Neuro: CN 2-12 grossly intact, no new focal deficits Psych: calm - Constitutional Vitals: Temp Pulse Resp BP Pulse Ox 97.5 F L 75 18 148/68 92 06/05/18 08:02 06/05/18 08:02 06/05/18 08:02 06/05/18 08:02 06/05/18 08:02 General appearance: Present: no acute distress Results - Labs CBC & Chem 7: 06/04/18 04:32 06/04/18 04:32 Labs: Laboratory Last Values WBC 10.4 K/mm3 (4.5-11.0) 06/04/18 04:32 RBC 4.55 M/mm3 (3.65-5.03) 06/04/18 04:32 Hgb 12.9 gm/dl (10.1-14.3) 06/04/18 04:32 Hct 38.8 % (30.3-42.9) 06/04/18 04:32 MCV 85 fl (79-97) 06/04/18 04:32 MCH 28 pg (28-32) 06/04/18 04:32 MCHC 33 % (30-34) 06/04/18 04:32 RDW 14.7 % (13.2-15.2) 06/04/18 04:32 Plt Count 373 K/mm3 (140-440) 06/04/18 04:32 Lymph % (Auto) 17.7 % (13.4-35.0) 06/03/18 05:28 [place] % (Auto) 10.5 % (0.0-7.3) H 06/03/18 05:28 Eos % (Auto) 4.0 % (0.0-4.3) 06/03/18 05:28 Baso % (Auto) 1.3 % (0.0-1.8) 06/03/18 05:28 Lymph # 2.0 K/mm3 (1.2-5.4) 06/03/18 05:28 [place] # 1.2 K/mm3 (0.0-0.8) H 06/03/18 05:28 Eos # 0.4 K/mm3 (0.0-0.4) 06/03/18 05:28 Baso # 0.1 K/mm3 (0.0-0.1) 06/03/18 05:28 Seg Neutrophils % 66.5 % (40.0-70.0) 06/03/18 05:28 Seg Neutrophils # 7.4 K/mm3 (1.8-7.7) 06/03/18 05:28 Sodium 136 mmol/L (137-145) L 06/04/18 04:32 Potassium 4.2 mmol/L (3.6-5.0) 06/04/18 04:32 Chloride 105.0 mmol/L (98-107) 06/04/18 04:32 Carbon Dioxide 20 mmol/L (22-30) L 06/04/18 04:32 Anion Gap 15 mmol/L 06/04/18 04:32 BUN 9 mg/dL (7-17) 06/04/18 04:32 Creatinine 0.6 mg/dL (0.7-1.2) L 06/04/18 04:32 Estimated GFR > 60 ml/min 06/04/18 04:32 BUN/Creatinine Ratio 15 % 06/04/18 04:32 Glucose 100 mg/dL (65-100) 06/04/18 04:32 POC Glucose 121 (70-105) H 06/03/18 22:52 Hemoglobin A1c 6.2 % (4-6) H 06/02/18 07:18 Calcium 9.6 mg/dL (8.4-10.2) 06/04/18 04:32 Total Bilirubin 0.40 mg/dL (0.1-1.2) 06/02/18 07:18 Direct Bilirubin < 0.2 mg/dL (0-0.2) 06/01/18 13:30 AST 19 units/L (5-40) 06/02/18 07:18 ALT 30 units/L (7-56) 06/02/18 07:18 Alkaline Phosphatase 122 units/L (35-129) 06/02/18 07:18 Total Protein 7.4 g/dL (6.3-8.2) 06/02/18 07:18 Albumin 3.6 g/dL (3.9-5) L 06/02/18 07:18 Albumin/Globulin Ratio 0.9 % 06/02/18 07:18 Urine Color Yellow (Yellow) 06/01/18 13:10 Urine Turbidity Slightly-cloudy (Clear) 06/01/18 13:10 Urine pH 7.0 (5.0-7.0) 06/01/18 13:10 Ur Specific [place] 1.004 (1.003-1.030) 06/01/18 13:10 Urine Protein <15 mg/dl mg/dL (Negative) 06/01/18 13:10 Urine Glucose (UA) Neg mg/dL (Negative) 06/01/18 13:10 Urine Ketones Tr mg/dL (Negative) 06/01/18 13:10 Urine Blood Neg (Negative) 06/01/18 13:10 Urine Nitrite Neg (Negative) 06/01/18 13:10 Urine Bilirubin Neg (Negative) 06/01/18 13:10 Urine Urobilinogen < 2.0 mg/dL (<2.0) 06/01/18 13:10 Ur Leukocyte Esterase Tr (Negative) 06/01/18 13:10 Urine WBC (Auto) 2.0 /HPF (0.0-6.0) 06/01/18 13:10 Urine RBC (Auto) < 1.0 /HPF (0.0-6.0) 06/01/18 13:10 U Epithel Cells (Auto) 14.0 /HPF (0-13.0) H 06/01/18 13:10 Urine Bacteria (Auto) 1+ /HPF (Negative) 06/01/18 13:10
[2018-06-05] MEDS: NACL 0.9% 1000 ML 1,000 ML IV SCH (18:06)
[2018-06-05] MEDS: LOVENOX SUB-Q SCH (21:12)
[2018-06-06] MEDS: NACL 0.9% 1000 ML 1,000 ML IV SCH (05:58)
[2018-06-06] MEDS: ZOFRAN IV PRN (06:01)
--- NOTE | 2018-06-06 08:27 | Hem/Onc Progress Note ---
Assessment and Plan 1. Lung mass. Differential includes neoplasm versus pneumonia. I discussed with the patient regarding biopsy as an option. 2. Left pelvic lesion causing pain and inability to walk. Radiation Oncology has been consulted. Biopsy would help. 3. Calcium 10.2, albumin 3.6, slightly elevated calcium. We will follow this trend of same. 4. Pain issues. 5. History of hypertension. 6. We will follow the patient during inpatient stay. We will see if tissue diagnosis can be obtained. I discussed with Dr. Barrow and he suggested physical therapy evaluation for now. 2/ - pt seen by IR - CT with contrast of chest done - will see if IR can bx the bone or the lung d/w dr Maier 06/05 - will await IR plans - path will guide plans 06/06 - IR Planning bone bx - Patient Problems (1) Lytic lesion of bone on x-ray Current Visit: Yes Status: Acute Subjective Date of service: 06/06/18 Principal diagnosis: lung lesion and bone lesion Interval history: walked with help still has pain IR planning bx Objective - Constitutional Vitals: Last Vital Signs Temp 99.0 F 06/05/18 19:46 Pulse 90 06/05/18 21:33 Resp 16 06/05/18 22:00 BP 139/70 06/05/18 19:46 Pulse Ox 94 06/05/18 22:00 Pain Intensity (0-10): 3/10 (left hip) General appearance: no acute distress Performance status: 3-limited selfcare - EENT Eyes: EOM intact ENT: clear oral mucosa Lymph node exam: negative cervical, negative supraclavicular - Neck Neck: normal ROM - Respiratory Respiratory effort: Positive: normal Respiratory: bilateral: CTA - Cardiovascular Heart Sounds: Present: S1 & S2 Extremities: No edema - Gastrointestinal General gastrointestinal: Present: soft, non-tender Rectal Exam: deferred - Genitourinary Female genitourinary: Present: deferred - Integumentary Integumentary: warm - Musculoskeletal Musculoskeletal: other (left leg pain - hip) - Neurologic Neurologic: CNII-XII intact Medications & Allergies - Medications Allergies/Adverse Reactions: Allergies No Known Allergies Allergy (Verified 06/01/18 12:28) Home Medications: Home Medications Medication Instructions Recorded Confirmed Last Taken Type Diclofenac EC [Voltaren] 25 mg PO Q8HR 06/01/18 06/01/1819 08:00 History HYDROcodone/APAP 5-325 [[place] 1 each PO Q8HR PRN 06/01/18 06/01/18 05/31/18 20:00 History 5/325] chlordiazePOXIDE [Librium] 10 mg PO TID 06/01/18 06/01/18 05/31/18 13:30 History traMADol [Ultram] 75 mg PO Q12HR PRN 06/01/18 06/01/18 04/25/18 History Active Medications: Generic Name Dose Route Start Last Admin Trade Name Freq PRN Reason Stop Dose Admin Acetaminophen 650 mg 06/02/18 06:53 Tylenol PO Q4H PRN Pain MILD(1-3)/Fever >100.5/GAMA Albuterol 2.5 mg 06/02/18 09:21 Proventil IH Q4HRT PRN Shortness Of Breath Albuterol/Ipratropium 1 ampul 06/02/18 14:00 06/05/18 21:26 Duoneb *Not For Prn Use* IH 1 ampul TIDRT BRADY Administration Enoxaparin Sodium 40 mg 06/02/18 22:00 06/05/18 21:12 Lovenox SUB-Q 40 mg QDAY@2200 BRADY Administration Famotidine 10 mg 06/02/18 10:00 06/05/18 21:11 Pepcid PO 10 mg BID BRADY Administration Hydromorphone HCl 0.5 mg 06/02/18 06:53 06/04/18 07:38 Dilaudid IV 0.5 mg Q3H PRN Administration Pain , Severe (7-10) Sodium Chloride 1,000 mls @ 75 mls/hr 06/02/18 08:00 06/06/18 05:58 Nacl 0.9% 1000 Ml IV 100 mls/hr DIRECT BRADY Administration Levofloxacin/Dextrose 750 mg in 150 mls @ 100 mls/hr 06/07/18 10:00 Levaquin 750mg/150ml IV Q48HR BRADY Protocol Ondansetron HCl 4 mg 06/02/18 06:53 06/06/18 06:01 Zofran IV 4 mg Q8H PRN Administration Nausea And Vomiting Oxycodone/Acetaminophen 1 tab 06/02/18 06:53 06/05/18 17:20 Percocet 5/325 PO 1 tab Q6H PRN Administration Pain, Moderate (4-6) Sodium Chloride 10 ml 06/02/18 10:00 06/05/18 21:12 Sodium Chloride Flush Syringe 10 Ml IV 10 ml BID BRADY Administration Sodium Chloride 10 ml 06/02/18 06:53 Sodium Chloride Flush Syringe 10 Ml IV PRN PRN LINE FLUSH
[2018-06-06] MEDS: DUONEB *Not for PRN Use IH SCH (09:08)
[2018-06-06] MEDS ORDERED: SUBLIMAZE IV ONE (09:16)
[2018-06-06] MEDS ORDERED: VERSED IV ONE ×2 (09:16→13:15)
--- NOTE | 2018-06-06 11:07 | Progress Note ---
Assessment and Plan Assessment and plan: Patient is a 88 yo woman with history of OA, hypertension, chronic tachycardia and Tobacco dependency who presented to [facility] ED (first visit in EMR) with left groin pains and inability to ambulate hence the inpatient admission. He was found to have a lytic lesion involving left acetabulum. Patient was seen by orthopedic surgery and radiation oncology.Patient is scheduled for Lt acetabular bone lesion biopsy today * CT abd/pelvis with contrast CONCLUSION: 1. Large lytic lesion involving/replacement of the left posterior acetabulum and ischium inferiorly up to the ischial tuberosity, as detailed above. Metastatic/neoplastic process primarily suspected and may also be correlated for clinically and with prior relevant imaging, if available. 2. Right lung base masslike (2.8 cm) consolidation in the lower lobe posteriorly also seen, nonspecific for benign scarring versus neoplasm, though latter remains to be excluded in light of above findings. These would also be amenable to percutaneous biopsy or workup further as with PET-CT, as warranted. 3. No acute abdominal CT abnormality with various other incidental findings, as described. * --The left pelvic lytic lesions; schedule for biopsy today Hematology oncology following --Right lower Lung mass; possible lung cancer versus pneumonia[Empiric antibiotics] Continue current management, possible CT-guided lung mass biopsy Dr. Arevalo feels the lung mass is most likely rounded atelectasis at the right lung base. Would recommend follow-up in [address] --Urinary tract infection; empiric antibiotics follow cultures --Hypertension; moderate control, continue current antihypertensives and when n ecessary medications --Hyponatremia; significantly improved, IV hydration and closely monitor elec trolytes --SIRS with organ dysfunction; continue current management --Ongoing tobacco use; smoking cessation, nicotine patch as needed --DVT prophylaxis; Lovenox --Full CODE STATUS; Closely monitor the patient and adjust management as needed Consults and recommendations noted and appreciated Plan of care is reviewed with the patient, family members at the bedside and her nurse History Interval history: Patient seen and examined medical records reviewed Patient is scheduled for left acetabular bone biopsy Patient feels better, no new complaints Vital signs reviewed Patient's family member at the bedside Hospitalist Physical - Constitutional Vitals: Temp Pulse Resp BP Pulse Ox 97.7 F 83 18 148/62 94 06/06/18 08:09 06/06/18 08:09 06/06/18 08:09 06/06/18 08:09 06/06/18 08:09 General appearance: Present: no acute distress, well-nourished - EENT Eyes: Present: PERRL, EOM intact - Neck Neck: Present: supple, normal ROM - Respiratory Respiratory effort: normal Respiratory: bilateral: diminished, negative: rales, rhonchi, wheezing - Cardiovascular Rhythm: regular Heart Sounds: Present: S1 & S2 - Extremities Extremities: no ischemia, No edema - Abdominal General gastrointestinal: soft, non-tender, non-distended, normal bowel sounds - Integumentary Integumentary: Present: clear, warm - Psychiatric Psychiatric: appropriate mood/affect, cooperative - Neurologic Neurologic: moves all extremities Results - Labs CBC & Chem 7: 06/04/18 04:32 06/07/18 05:36 Labs: Laboratory Last Values WBC 10.4 K/mm3 (4.5-11.0) 06/04/18 04:32 RBC 4.55 M/mm3 (3.65-5.03) 06/04/18 04:32 Hgb 12.9 gm/dl (10.1-14.3) 06/04/18 04:32 Hct 38.8 % (30.3-42.9) 06/04/18 04:32 MCV 85 fl (79-97) 06/04/18 04:32 MCH 28 pg (28-32) 06/04/18 04:32 MCHC 33 % (30-34) 06/04/18 04:32 RDW 14.7 % (13.2-15.2) 06/04/18 04:32 Plt Count 373 K/mm3 (140-440) 06/04/18 04:32 Lymph % (Auto) 17.7 % (13.4-35.0) 06/03/18 05:28 [place] % (Auto) 10.5 % (0.0-7.3) H 06/03/18 05:28 Eos % (Auto) 4.0 % (0.0-4.3) 06/03/18 05:28 Baso % (Auto) 1.3 % (0.0-1.8) 06/03/18 05:28 Lymph # 2.0 K/mm3 (1.2-5.4) 06/03/18 05:28 [place] # 1.2 K/mm3 (0.0-0.8) H 06/03/18 05:28 Eos # 0.4 K/mm3 (0.0-0.4) 06/03/18 05:28 Baso # 0.1 K/mm3 (0.0-0.1) 06/03/18 05:28 Seg Neutrophils % 66.5 % (40.0-70.0) 06/03/18 05:28 Seg Neutrophils # 7.4 K/mm3 (1.8-7.7) 06/03/18 05:28 Sodium 136 mmol/L (137-145) L 06/04/18 04:32 Potassium 4.2 mmol/L (3.6-5.0) 06/04/18 04:32 Chloride 105.0 mmol/L (98-107) 06/04/18 04:32 Carbon Dioxide 20 mmol/L (22-30) L 06/04/18 04:32 Anion Gap 15 mmol/L 06/04/18 04:32 BUN 9 mg/dL (7-17) 06/04/18 04:32 Creatinine 0.6 mg/dL (0.7-1.2) L 06/04/18 04:32 Estimated GFR > 60 ml/min 06/04/18 04:32 BUN/Creatinine Ratio 15 % 06/04/18 04:32 Glucose 100 mg/dL (65-100) 06/04/18 04:32 POC Glucose 121 (70-105) H 06/03/18 22:52 Hemoglobin A1c 6.2 % (4-6) H 06/02/18 07:18 Calcium 9.6 mg/dL (8.4-10.2) 06/04/18 04:32 Total Bilirubin 0.40 mg/dL (0.1-1.2) 06/02/18 07:18 Direct Bilirubin < 0.2 mg/dL (0-0.2) 06/01/18 13:30 AST 19 units/L (5-40) 06/02/18 07:18 ALT 30 units/L (7-56) 06/02/18 07:18 Alkaline Phosphatase 122 units/L (35-129) 06/02/18 07:18 Total Protein 7.4 g/dL (6.3-8.2) 06/02/18 07:18 Albumin 3.6 g/dL (3.9-5) L 06/02/18 07:18 Albumin/Globulin Ratio 0.9 % 06/02/18 07:18 Urine Color Yellow (Yellow) 06/01/18 13:10 Urine Turbidity Slightly-cloudy (Clear) 06/01/18 13:10 Urine pH 7.0 (5.0-7.0) 06/01/18 13:10 Ur Specific [place] 1.004 (1.003-1.030) 06/01/18 13:10 Urine Protein <15 mg/dl mg/dL (Negative) 06/01/18 13:10 Urine Glucose (UA) Neg mg/dL (Negative) 06/01/18 13:10 Urine Ketones Tr mg/dL (Negative) 06/01/18 13:10 Urine Blood Neg (Negative) 06/01/18 13:10 Urine Nitrite Neg (Negative) 06/01/18 13:10 Urine Bilirubin Neg (Negative) 06/01/18 13:10 Urine Urobilinogen < 2.0 mg/dL (<2.0) 06/01/18 13:10 Ur Leukocyte Esterase Tr (Negative) 06/01/18 13:10 Urine WBC (Auto) 2.0 /HPF (0.0-6.0) 06/01/18 13:10 Urine RBC (Auto) < 1.0 /HPF (0.0-6.0) 06/01/18 13:10 U Epithel Cells (Auto) 14.0 /HPF (0-13.0) H 06/01/18 13:10 Urine Bacteria (Auto) 1+ /HPF (Negative) 06/01/18 13:10
[2018-06-06] MEDS: DILAUDID IV PRN (11:24)
[2018-06-06] MEDS ORDERED: NACL 0.9% 500 ML 0 ML ONE (13:17)
[2018-06-06] MEDS ORDERED: SUBLIMAZE ONE (13:17)
[2018-06-06] MEDS ORDERED: XYLOCAINE 1% 20 mL ONE (13:30)
[2018-06-06] MEDS: PEPCID PO SCH ×2 (14:23→21:15)
--- NOTE | 2018-06-06 14:26 | Cat Scan Report ---
Exam: CT-guided biopsy of soft tissue acetabular mass Clinical indication: Patient with leg pain and soft tissue acetabular mass Date: 06/06/2018 Procedure: Following an explanation of the risks, benefits and alternatives; written informed consent was obtained. The patient was brought to the angiographic suite and placed in prone position on the gantry. Initial preparation department supervisor images of her left hip were obtained and an appropriate access sites were chosen. A 17-gauge 11 cm needle was then advanced to the margin of the mass using intermittent CT guidance. A total of 3 core biopsies were then obtained using an 18-gauge Bard biopsy needle. Samples were handed off to the pathologist in attendance who determined that the samples were adequate for pathologic analysis. The needle was removed and hemostasis achieved using manual compression. A sterile dressing was applied. The patient tolerated the procedure well. There were no immediate postprocedure complications. Conscious sedation was performed under the guidance of radiologic nursing. Continuous cardiopulmonary monitoring was utilized. Impression: CT-guided biopsy of soft tissue acetabular mass for 3 core biopsies obtained and handed off the pathologist in attendance. The samples were determined to be adequate for pathologic analysis.
[2018-06-06] MEDS: PERCOCET 5/325 PO PRN (21:15)
[2018-06-06] MEDS: LOVENOX SUB-Q SCH (21:15)
[2018-06-06] MEDS: SODIUM CHLORIDE FLUSH SYRINGE 10 ML IV SCH (21:16)
[2018-06-07] MEDS: ZOFRAN IV PRN (05:57)
[2018-06-07] MEDS: PERCOCET 5/325 PO PRN ×3 (06:29→23:25)
[2018-06-07 07:01] LABS: BUN/Creatinine Ratio 20; Blood Urea Nitrogen 10 mg/dL (7-17); Calcium 9.4 mg/dL (8.4-10.2); Hemolysis Index 13
--- NOTE | 2018-06-07 08:22 | Progress Note ---
Assessment and Plan Assessment and plan: Patient is a 88 yo woman with history of OA, hypertension, chronic tachycardia and Tobacco dependency who presented to [facility] ED (first visit in EMR) with left groin pains and inability to ambulate hence the inpatient admission. He was found to have a lytic lesion involving left acetabulum. Patient was seen by orthopedic surgery and radiation oncology.Patient is scheduled for Lt acetabular bone lesion biopsy today * CT abd/pelvis with contrast CONCLUSION: 1. Large lytic lesion involving/replacement of the left posterior acetabulum and ischium inferiorly up to the ischial tuberosity, as detailed above. Metastatic/neoplastic process primarily suspected and may also be correlated for clinically and with prior relevant imaging, if available. 2. Right lung base masslike (2.8 cm) consolidation in the lower lobe posteriorly also seen, nonspecific for benign scarring versus neoplasm, though latter remains to be excluded in light of above findings. These would also be amenable to percutaneous biopsy or workup further as with PET-CT, as warranted. 3. No acute abdominal CT abnormality with various other incidental findings, as described. * --The left pelvic lytic lesions; s/p biopsy yesterday Pending report,Hematology oncology following --Right lower Lung mass; possible lung cancer versus pneumonia[Empiric antibiotics] Continue current management, possible CT-guided lung mass biopsy Dr. Arevalo feels the lung mass is most likely rounded atelectasis at the right lung base. Would recommend follow-up in [address] --Urinary tract infection; empiric antibiotics follow cultures --Hypertension; moderate control, continue current antihypertensives and when necessary medications --Hyponatremia; significantly improved, IV hydration and closely monitor electrolytes --SIRS with organ dysfunction; continue current management --Ongoing tobacco use; smoking cessation, nicotine patch as needed --DVT prophylaxis; Lovenox --Full CODE STATUS; Closely monitor the patient and adjust management as needed Consults and recommendations noted and appreciated Plan of care is reviewed with the patient, family members at the bedside and her nurse History Interval history: Patient seen and examined medical records reviewed Underwent lytic lesion bone biopsy yesterday Patient feels better complaints of generalized weakness Vital signs noted Hospitalist Physical - Constitutional Vitals: Temp Pulse Resp BP Pulse Ox 98.1 F 62 18 128/54 94 06/07/18 03:09 06/07/18 03:09 06/07/18 03:09 06/07/18 03:09 06/07/18 03:09 General appearance: Present: no acute distress, well-nourished - EENT Eyes: Present: PERRL, EOM intact - Neck Neck: Present: supple, normal ROM - Respiratory Respiratory effort: normal Respiratory: bilateral: diminished, negative: rales, rhonchi, wheezing - Cardiovascular Rhythm: regular Heart Sounds: Present: S1 & S2 - Extremities Extremities: no ischemia, No edema - Abdominal General gastrointestinal: soft, non-tender, non-distended, normal bowel sounds - Integumentary Integumentary: Present: clear, warm - Psychiatric Psychiatric: appropriate mood/affect, cooperative - Neurologic Neurologic: moves all extremities Results - Labs CBC & Chem 7: 06/04/18 04:32 06/07/18 05:36 Labs: Laboratory Last Values WBC 10.4 K/mm3 (4.5-11.0) 06/04/18 04:32 RBC 4.55 M/mm3 (3.65-5.03) 06/04/18 04:32 Hgb 12.9 gm/dl (10.1-14.3) 06/04/18 04:32 Hct 38.8 % (30.3-42.9) 06/04/18 04:32 MCV 85 fl (79-97) 06/04/18 04:32 MCH 28 pg (28-32) 06/04/18 04:32 MCHC 33 % (30-34) 06/04/18 04:32 RDW 14.7 % (13.2-15.2) 06/04/18 04:32 Plt Count 373 K/mm3 (140-440) 06/04/18 04:32 Lymph % (Auto) 17.7 % (13.4-35.0) 06/03/18 05:28 [place] % (Auto) 10.5 % (0.0-7.3) H 06/03/18 05:28 Eos % (Auto) 4.0 % (0.0-4.3) 06/03/18 05:28 Baso % (Auto) 1.3 % (0.0-1.8) 06/03/18 05:28 Lymph # 2.0 K/mm3 (1.2-5.4) 06/03/18 05:28 [place] # 1.2 K/mm3 (0.0-0.8) H 06/03/18 05:28 Eos # 0.4 K/mm3 (0.0-0.4) 06/03/18 05:28 Baso # 0.1 K/mm3 (0.0-0.1) 06/03/18 05:28 Seg Neutrophils % 66.5 % (40.0-70.0) 06/03/18 05:28 Seg Neutrophils # 7.4 K/mm3 (1.8-7.7) 06/03/18 05:28 Sodium 136 mmol/L (137-145) L 06/07/18 05:36 Potassium 4.4 mmol/L (3.6-5.0) 06/07/18 05:36 Chloride 102.4 mmol/L (98-107) 06/07/18 05:36 Carbon Dioxide 19 mmol/L (22-30) L 06/07/18 05:36 Anion Gap 19 mmol/L 06/07/18 05:36 BUN 10 mg/dL (7-17) 06/07/18 05:36 Creatinine 0.5 mg/dL (0.7-1.2) L 06/07/18 05:36 Estimated GFR > 60 ml/min 06/07/18 05:36 BUN/Creatinine Ratio 20 % 06/07/18 05:36 Glucose 81 mg/dL (65-100) 06/07/18 05:36 POC Glucose 121 (70-105) H 06/03/18 22:52 Hemoglobin A1c 6.2 % (4-6) H 06/02/18 07:18 Calcium 9.4 mg/dL (8.4-10.2) 06/07/18 05:36 Total Bilirubin 0.40 mg/dL (0.1-1.2) 06/02/18 07:18 Direct Bilirubin < 0.2 mg/dL (0-0.2) 06/01/18 13:30 AST 19 units/L (5-40) 06/02/18 07:18 ALT 30 units/L (7-56) 06/02/18 07:18 Alkaline Phosphatase 122 units/L (35-129) 06/02/18 07:18 Total Protein 7.4 g/dL (6.3-8.2) 06/02/18 07:18 Albumin 3.6 g/dL (3.9-5) L 06/02/18 07:18 Albumin/Globulin Ratio 0.9 % 06/02/18 07:18 Urine Color Yellow (Yellow) 06/01/18 13:10 Urine Turbidity Slightly-cloudy (Clear) 06/01/18 13:10 Urine pH 7.0 (5.0-7.0) 06/01/18 13:10 Ur Specific [place] 1.004 (1.003-1.030) 06/01/18 13:10 Urine Protein <15 mg/dl mg/dL (Negative) 06/01/18 13:10 Urine Glucose (UA) Neg mg/dL (Negative) 06/01/18 13:10 Urine Ketones Tr mg/dL (Negative) 06/01/18 13:10 Urine Blood Neg (Negative) 06/01/18 13:10 Urine Nitrite Neg (Negative) 06/01/18 13:10 Urine Bilirubin Neg (Negative) 06/01/18 13:10 Urine Urobilinogen < 2.0 mg/dL (<2.0) 06/01/18 13:10 Ur Leukocyte Esterase Tr (Negative) 06/01/18 13:10 Urine WBC (Auto) 2.0 /HPF (0.0-6.0) 06/01/18 13:10 Urine RBC (Auto) < 1.0 /HPF (0.0-6.0) 06/01/18 13:10 U Epithel Cells (Auto) 14.0 /HPF (0-13.0) H 06/01/18 13:10 Urine Bacteria (Auto) 1+ /HPF (Negative) 06/01/18 13:10
--- NOTE | 2018-06-07 08:41 | Hem/Onc Progress Note ---
Assessment and Plan 1. Lung mass. Differential includes neoplasm versus pneumonia. I discussed with the patient regarding biopsy as an option. 2. Left pelvic lesion causing pain and inability to walk. Radiation Oncology has been consulted. Biopsy would help. 3. Calcium 10.2, albumin 3.6, slightly elevated calcium. We will follow this trend of same. 4. Pain issues. 5. History of hypertension. 6. We will follow the patient during inpatient stay. We will see if tissue diagnosis can be obtained. I discussed with Dr. Barrow and he suggested physical therapy evaluation for now. 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 d/w dr nation reg palliative radiation - Patient Problems (1) Lytic lesion of bone on x-ray Current Visit: Yes Status: Acute Subjective Date of service: 06/07/18 Principal diagnosis: lung mass and bone lesion Interval history: pt had bone bx done Objective - Constitutional Vitals: Last Vital Signs Temp 98.3 F 06/07/18 07:56 Pulse 83 06/07/18 07:56 Resp 20 06/07/18 07:56 BP 112/46 06/07/18 07:56 Pulse Ox 99 06/07/18 07:56 Pain Intensity (0-10): 1/10 General appearance: mild distress Performance status: 3-limited selfcare - EENT Eyes: EOM intact ENT: clear oral mucosa Lymph node exam: negative cervical, negative supraclavicular - Neck Neck: normal ROM - Respiratory Respiratory effort: Positive: normal Respiratory: bilateral: CTA - Cardiovascular Heart Sounds: Present: S1 & S2 Extremities: No edema - Gastrointestinal General gastrointestinal: Present: soft, non-tender Rectal Exam: deferred - Genitourinary Female genitourinary: Present: deferred - Integumentary Integumentary: warm - Musculoskeletal Musculoskeletal: other (left leg pain) - Neurologic Neurologic: moves all extremities - Psychiatric Psychiatric: appropriate mood/affect - Labs Lab Results: Laboratory Results - last 24 hr 06/07/18 05:36 Sodium 136 L Potassium 4.4 Chloride 102.4 Carbon Dioxide 19 L Anion Gap 19 BUN 10 Creatinine 0.5 L Estimated GFR > 60 BUN/Creatinine Ratio 20 Glucose 81 Calcium 9.4 Medications & Allergies - Medications Allergies/Adverse Reactions: Allergies No Known Allergies Allergy (Verified 06/01/18 12:28) Home Medications: Home Medications Medication Instructions Recorded Confirmed Last Taken Type Diclofenac EC [Voltaren] 25 mg PO Q8HR 06/01/18 06/01/18 06/01/18 08:00 History HYDROcodone/APAP 5-325 [[place] 1 each PO Q8HR PRN 06/01/18 06/01/18 05/31/18 20:00 History 5/325] chlordiazePOXIDE [Librium] 10 mg PO TID 06/01/18 06/01/18 05/31/18 13:30 History traMADol [Ultram] 75 mg PO Q12HR PRN 06/01/18 06/01/18 04/25/18 History Active Medications: Generic Name Dose Route Start Last Admin Trade Name Freq PRN Reason Stop Dose Admin Acetaminophen 650 mg 06/02/18 06:53 Tylenol PO Q4H PRN Pain MILD(1-3)/Fever >100.5/GAMA Albuterol 2.5 mg 06/02/18 09:21 Proventil IH Q4HRT PRN Shortness Of Breath Albuterol/Ipratropium 1 ampul 06/02/18 14:00 06/06/18 09:08 Duoneb *Not For Prn Use* IH Not Given TIDRT BRADY Enoxaparin Sodium 40 mg 06/02/18 22:00 06/06/18 21:15 Lovenox SUB-Q 40 mg QDAY@2200 BRADY Administration Famotidine 10 mg 06/02/18 10:00 06/06/18 21:15 Pepcid PO 10 mg BID BRADY Administration Hydromorphone HCl 0.5 mg 06/02/18 06:53 06/06/18 11:24 Dilaudid IV 0.5 mg Q3H PRN Administration Pain , Severe (7-10) Sodium Chloride 1,000 mls @ 75 mls/hr 06/02/18 08:00 06/06/18 05:58 Nacl 0.9% 1000 Ml IV 100 mls/hr DIRECT BRADY Administration Levofloxacin/Dextrose 750 mg in 150 mls @ 100 mls/hr 06/07/18 10:00 Levaquin 750mg/150ml IV Q48HR [facility] Protocol Ondansetron HCl 4 mg 06/02/18 06:53 06/07/18 05:57 Zofran IV 4 mg Q8H PRN Administration Nausea And Vomiting Oxycodone/Acetaminophen 1 tab 06/02/18 06:53 06/07/18 06:29 Percocet 5/325 PO 1 tab Q6H PRN Administration Pain, Moderate (4-6) Sodium Chloride 10 ml 06/02/18 10:00 06/06/18 21:16 Sodium Chloride Flush Syringe 10 Ml IV 10 ml BID BRADY Administration Sodium Chloride 10 ml 06/02/18 06:53 Sodium Chloride Flush Syringe 10 Ml IV PRN PRN LINE FLUSH
[2018-06-07] MEDS: SODIUM CHLORIDE FLUSH SYRINGE 10 ML IV SCH ×3 (09:18→23:28)
[2018-06-07] MEDS: PEPCID PO SCH ×2 (09:18→23:24)
[2018-06-07] MEDS ORDERED: LEVAQUIN 750MG/150ML 750 MG/150 ML BAG IV SCH (10:00)
[2018-06-07] MEDS: DUONEB *Not for PRN Use IH SCH ×5 (10:57→20:15)
[2018-06-07] MEDS: NACL 0.9% 1000 ML 1,000 ML IV SCH (15:42)
[2018-06-07] MEDS: LOVENOX SUB-Q SCH (23:25)
[2018-06-08] MEDS: NACL 0.9% 1000 ML 1,000 ML IV SCH ×2 (05:52→21:43)
--- NOTE | 2018-06-08 07:45 | Progress Note ---
Assessment and Plan Assessment and plan: Patient is a 88 yo woman with history of OA, hypertension, chronic tachycardia and Tobacco dependency who presented to [facility] ED (first visit in EMR) with left groin pains and inability to ambulate hence the inpatient admission. He was found to have a lytic lesion involving left acetabulum. Patient was seen by orthopedic surgery and radiation oncology.Patient is scheduled for Lt acetabular,s/p bone lesion biopsy . --The left pelvic lytic lesions; s/p biopsy Pathology; squamous cell carcinoma, likely lung primary Oncology recommend palliative radiation --Right lower Lung mass; possible lung cancer versus pneumonia[Empiric antibiotics] possible CT-guided lung mass biopsy, --Urinary tract infection; empiric antibiotics --Hypertension; moderate control, continue current antihypertensives and when necessary medications --Hyponatremia; significantly improved, IV hydration and closely monitor electrolytes --SIRS with organ dysfunction; continue current management --Ongoing tobacco use; smoking cessation, nicotine patch as needed --DVT prophylaxis; Lovenox --Full CODE STATUS; Radiation oncology recommendations . Plan of care is reviewed with the patient, and her nurse History Interval history: Patient seen and examined medical records reviewed Bone biopsy pathology report consistent Sq Cell Ca, Radiation oncology consultation for palliative radiation First treatment scheduled for tomorrow Patient not in acute distress Vital signs reviewed Hospitalist Physical - Constitutional Vitals: Temp Pulse Resp BP Pulse Ox 98.0 F 81 18 126/67 99 06/07/18 13:00 06/07/18 20:32 06/07/18 20:32 06/07/18 13:00 06/07/18 13:00 General appearance: Present: no acute distress, well-nourished - EENT Eyes: Present: PERRL, EOM intact - Neck Neck: Present: supple, normal ROM - Respiratory Respiratory effort: normal Respiratory: bilateral: diminished, negative: rales, rhonchi, wheezing - Cardiovascular Rhythm: regular Heart Sounds: Present: S1 & S2 - Extremities Extremities: no ischemia, No edema - Abdominal General gastrointestinal: soft, non-tender, non-distended, normal bowel sounds - Integumentary Integumentary: Present: clear, warm - Psychiatric Psychiatric: appropriate mood/affect, cooperative - Neurologic Neurologic: CNII-XII intact, moves all extremities Results - Labs CBC & Chem 7: 06/04/18 04:32 06/07/18 05:36 Labs: Laboratory Last Values WBC 10.4 K/mm3 (4.5-11.0) 06/04/18 04:32 RBC 4.55 M/mm3 (3.65-5.03) 06/04/18 04:32 Hgb 12.9 gm/dl (10.1-14.3) 06/04/18 04:32 Hct 38.8 % (30.3-42.9) 06/04/18 04:32 MCV 85 fl (79-97) 06/04/18 04:32 MCH 28 pg (28-32) 06/04/18 04:32 MCHC 33 % (30-34) 06/04/18 04:32 RDW 14.7 % (13.2-15.2) 06/04/18 04:32 Plt Count 373 K/mm3 (140-440) 06/04/18 04:32 Lymph % (Auto) 17.7 % (13.4-35.0) 06/03/18 05:28 [place] % (Auto) 10.5 % (0.0-7.3) H 06/03/18 05:28 Eos % (Auto) 4.0 % (0.0-4.3) 06/03/18 05:28 Baso % (Auto) 1.3 % (0.0-1.8) 06/03/18 05:28 Lymph # 2.0 K/mm3 (1.2-5.4) 06/03/18 05:28 [place] # 1.2 K/mm3 (0.0-0.8) H 06/03/18 05:28 Eos # 0.4 K/mm3 (0.0-0.4) 06/03/18 05:28 Baso # 0.1 K/mm3 (0.0-0.1) 06/03/18 05:28 Seg Neutrophils % 66.5 % (40.0-70.0) 06/03/18 05:28 Seg Neutrophils # 7.4 K/mm3 (1.8-7.7) 06/03/18 05:28 Sodium 136 mmol/L (137-145) L 06/07/18 05:36 Potassium 4.4 mmol/L (3.6-5.0) 06/07/18 05:36 Chloride 102.4 mmol/L (98-107) 06/07/18 05:36 Carbon Dioxide 19 mmol/L (22-30) L 06/07/18 05:36 Anion Gap 19 mmol/L 06/07/18 05:36 BUN 10 mg/dL (7-17) 06/07/18 05:36 Creatinine 0.5 mg/dL (0.7-1.2) L 06/07/18 05:36 Estimated GFR > 60 ml/min 06/07/18 05:36 BUN/Creatinine Ratio 20 % 06/07/18 05:36 Glucose 81 mg/dL (65-100) 06/07/18 05:36 POC Glucose 121 (70-105) H 06/03/18 22:52 Hemoglobin A1c 6.2 % (4-6) H 06/02/18 07:18 Calcium 9.4 mg/dL (8.4-10.2) 06/07/18 05:36 Total Bilirubin 0.40 mg/dL (0.1-1.2) 06/02/18 07:18 Direct Bilirubin < 0.2 mg/dL (0-0.2) 06/01/18 13:30 AST 19 units/L (5-40) 06/02/18 07:18 ALT 30 units/L (7-56) 06/02/18 07:18 Alkaline Phosphatase 122 units/L (35-129) 06/02/18 07:18 Total Protein 7.4 g/dL (6.3-8.2) 06/02/18 07:18 Albumin 3.6 g/dL (3.9-5) L 06/02/18 07:18 Albumin/Globulin Ratio 0.9 % 06/02/18 07:18 Urine Color Yellow (Yellow) 06/01/18 13:10 Urine Turbidity Slightly-cloudy (Clear) 06/01/18 13:10 Urine pH 7.0 (5.0-7.0) 06/01/18 13:10 Ur Specific [place] 1.004 (1.003-1.030) 06/01/18 13:10 Urine Protein <15 mg/dl mg/dL (Negative) 06/01/18 13:10 Urine Glucose (UA) Neg mg/dL (Negative) 06/01/18 13:10 Urine Ketones Tr mg/dL (Negative) 06/01/18 13:10 Urine Blood Neg (Negative) 06/01/18 13:10 Urine Nitrite Neg (Negative) 06/01/18 13:10 Urine Bilirubin Neg (Negative) 06/01/18 13:10 Urine Urobilinogen < 2.0 mg/dL (<2.0) 06/01/18 13:10 Ur Leukocyte Esterase Tr (Negative) 06/01/18 13:10 Urine WBC (Auto) 2.0 /HPF (0.0-6.0) 06/01/18 13:10 Urine RBC (Auto) < 1.0 /HPF (0.0-6.0) 06/01/18 13:10 U Epithel Cells (Auto) 14.0 /HPF (0-13.0) H 06/01/18 13:10 Urine Bacteria (Auto) 1+ /HPF (Negative) 06/01/18 13:10
[2018-06-08] MEDS: ZOFRAN IV PRN (08:48)
[2018-06-08] MEDS: PERCOCET 5/325 PO PRN ×2 (08:58→21:46)
[2018-06-08] MEDS: DUONEB *Not for PRN Use IH SCH ×3 (09:10→19:29)
[2018-06-08] MEDS: PEPCID PO SCH ×2 (09:27→21:45)
[2018-06-08] MEDS: SODIUM CHLORIDE FLUSH SYRINGE 10 ML IV SCH (09:28)
--- NOTE | 2018-06-08 10:36 | Hem/Onc Progress Note ---
Assessment and Plan 1. Lung mass. Differential includes neoplasm versus pneumonia. I discussed with the patient regarding biopsy as an option. 2. Left pelvic lesion causing pain and inability to walk. Radiation Oncology has been consulted. Biopsy would help. 3. Calcium 10.2, albumin 3.6, slightly elevated calcium. We will follow this trend of same. 4. Pain issues. 5. History of hypertension. 6. We will follow the patient during inpatient stay. We will see if tissue diagnosis can be obtained. I discussed with Dr. Barrow and he suggested physical therapy evaluation for now. 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 palliative xrt d/w dr Monteiro will follow as OP - pt reluctant for chemo - Patient Problems (1) Lytic lesion of bone on x-ray Current Visit: Yes Status: Acute Subjective Date of service: 06/08/18 Principal diagnosis: sq cell ca Interval history: path resulted Objective - Constitutional Vitals: Last Vital Signs Temp 98.6 F 06/08/18 07:55 Pulse 83 06/08/18 07:55 Resp 14 06/08/18 08:58 BP 168/69 06/08/18 07:55 Pulse Ox 95 06/08/18 07:55 Pain Intensity (0-10): 2/10 General appearance: no acute distress Performance status: 3-limited selfcare - EENT Eyes: EOM intact ENT: clear oral mucosa Lymph node exam: negative cervical - Neck Neck: normal ROM - Respiratory Respiratory effort: Positive: normal Respiratory: bilateral: CTA - Cardiovascular Heart Sounds: Present: S1 & S2 Extremities: No edema - Gastrointestinal General gastrointestinal: Present: soft, non-tender Rectal Exam: deferred - Genitourinary Female genitourinary: Present: deferred - Integumentary Integumentary: warm - Musculoskeletal Musculoskeletal: other (left leg pain) - Psychiatric Psychiatric: appropriate mood/affect Medications & Allergies - Medications Allergies/Adverse Reactions: Allergies No Known Allergies Allergy (Verified 06/01/18 12:28) Home Medications: Home Medications Medication Instructions Recorded Confirmed Last Taken Type Diclofenac EC [Voltaren] 25 mg PO Q8HR 06/01/18 06/01/18 06/01/18 08:00 History HYDROcodone/APAP 5-325 [[place] 1 each PO Q8HR PRN 06/01/18 06/01/18 05/31/18 20:00 History 5/325] chlordiazePOXIDE [Librium] 10 mg PO TID 06/01/18 06/01/18 05/31/18 13:30 History traMADol [Ultram] 75 mg PO Q12HR PRN 06/01/18 06/01/18 04/25/18 History Active Medications: Generic Name Dose Route Start Last Admin Trade Name Freq PRN Reason Stop Dose Admin Acetaminophen 650 mg 06/02/18 06:53 Tylenol PO Q4H PRN Pain MILD(1-3)/Fever >100.5/GAMA Albuterol 2.5 mg 06/02/18 09:21 Proventil IH Q4HRT PRN Shortness Of Breath Albuterol/Ipratropium 1 ampul 06/02/18 14:00 06/07/18 20:15 Duoneb *Not For Prn Use* IH 1 ampul TIDRT BRADY Administration Enoxaparin Sodium 40 mg 06/02/18 22:00 06/07/18 23:25 Lovenox SUB-Q 40 mg QDAY@2200 BRADY Administration Famotidine 10 mg 06/02/18 10:00 06/08/18 09:27 Pepcid PO 10 mg BID BRADY Administration Hydromorphone HCl 0.5 mg 06/02/18 06:53 06/06/18 11:24 Dilaudid IV 0.5 mg Q3H PRN Administration Pain , Severe (7-10) Sodium Chloride 1,000 mls @ 75 mls/hr 06/02/18 08:00 06/08/18 05:52 Nacl 0.9% 1000 Ml IV 100 mls/hr DIRECT BRADY Administration Levofloxacin 750 mg 06/09/18 10:00 Levaquin PO Q48HR BRADY Ondansetron HCl 4 mg 06/02/18 06:53 06/08/18 08:48 Zofran IV 4 mg Q8H PRN Administration Nausea And Vomiting Oxycodone/Acetaminophen 1 tab 06/02/18 06:53 06/08/18 08:58 Percocet 5/325 PO 1 tab Q6H PRN Administration Pain, Moderate (4-6) Sodium Chloride 10 ml 06/02/18 10:00 06/08/18 09:28 Sodium Chloride Flush Syringe 10 Ml IV 10 ml BID BRADY Administration Sodium Chloride 10 ml 06/02/18 06:53 Sodium Chloride Flush Syringe 10 Ml IV PRN PRN LINE FLUSH
[2018-06-08] MEDS: LOVENOX SUB-Q SCH (21:45)
[2018-06-09] MEDS: ZOFRAN IV PRN ×2 (07:33→21:26)
--- NOTE | 2018-06-09 08:31 | Hem/Onc Progress Note ---
Assessment and Plan 1. Lung mass. lung ca - based on bone bx - stage IV - sq - NSCLC 2. Left pelvic lesion causing pain and inability to walk. Radiation Oncology has been consulted. 3. Calcium 10.2, albumin 3.6, slightly elevated calcium. We will follow this trend of same. 4. Pain issues. 5. History of hypertension. 6. We will follow the patient during inpatient stay. I had discussed with Dr. Barrow and he suggested physical therapy evaluation for now. 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 palliative xrt d/w dr Monteiro will follow as OP - pt reluctant for chemo 06/09/2018 pt will be seen as OP to see if any oral agents can be used - Patient Problems (1) Lytic lesion of bone on x-ray Current Visit: Yes Status: Acute (2) Lung cancer Current Visit: Yes Status: Acute Qualifiers: Laterality: right Subjective Date of service: 06/09/18 Principal diagnosis: stage IV lung ca - NSCLC - sq Interval history: pt will start XRT Objective - Constitutional Vitals: Last Vital Signs Temp 97.9 F 06/09/18 08:04 Pulse 69 06/09/18 08:04 Resp 20 06/09/18 08:04 BP 150/60 06/09/18 08:04 Pulse Ox 97 06/09/18 08:04 Pain Intensity (0-10): 1/10 General appearance: mild distress (hip pain) - EENT Eyes: EOM intact ENT: clear oral mucosa Lymph node exam: negative cervical, negative supraclavicular - Neck Neck: normal ROM - Respiratory Respiratory effort: Positive: normal Respiratory: bilateral: CTA - Cardiovascular Heart Sounds: Present: S1 & S2 Extremities: No edema - Gastrointestinal General gastrointestinal: Present: soft, non-tender Rectal Exam: deferred - Genitourinary Female genitourinary: Present: deferred - Integumentary Integumentary: warm - Musculoskeletal Musculoskeletal: other (left hip pain) - Neurologic Neurologic: moves all extremities - Psychiatric Psychiatric: appropriate mood/affect Medications & Allergies - Medications Allergies/Adverse Reactions: Allergies No Known Allergies Allergy (Verified 06/01/18 12:28) Home Medications: Home Medications Medication Instructions Recorded Confirmed Last Taken Type Diclofenac EC [Voltaren] 25 mg PO Q8HR 06/01/18 06/01/18 06/01/18 08:00 History HYDROcodone/APAP 5-325 [[place] 1 each PO Q8HR PRN 06/01/18 06/01/18 05/31/18 20:00 History 5/325] chlordiazePOXIDE [Librium] 10 mg PO TID 06/01/18 06/01/18 05/31/18 13:30 History traMADol [Ultram] 75 mg PO Q12HR PRN 06/01/18 06/01/18 04/25/18 History Active Medications: Generic Name Dose Route Start Last Admin Trade Name Freq PRN Reason Stop Dose Admin Acetaminophen 650 mg 06/02/18 06:53 Tylenol PO Q4H PRN Pain MILD(1-3)/Fever >100.5/GAMA Albuterol 2.5 mg 06/02/18 09:21 Proventil IH Q4HRT PRN Shortness Of Breath Albuterol/Ipratropium 1 ampul 06/02/18 14:00 06/08/18 19:29 Duoneb *Not For Prn Use* IH Not Given TIDRT [facility] Enoxaparin Sodium 40 mg 06/02/18 22:00 06/08/18 21:45 Lovenox SUB-Q 40 mg QDAY@2200 BRADY Administration Famotidine 10 mg 06/02/18 10:00 06/08/18 21:45 Pepcid PO 10 mg BID BRADY Administration Hydromorphone HCl 0.5 mg 06/02/18 06:53 06/06/18 11:24 Dilaudid IV 0.5 mg Q3H PRN Administration Pain , Severe (7-10) Sodium Chloride 1,000 mls @ 75 mls/hr 06/02/18 08:00 06/08/18 21:43 Nacl 0.9% 1000 Ml IV 100 mls/hr DIRECT BRADY Administration Levofloxacin 750 mg 06/09/18 10:00 Levaquin PO Q48HR BRADY Ondansetron HCl 4 mg 06/02/18 06:53 06/09/18 07:33 Zofran IV 4 mg Q8H PRN Administration Nausea And Vomiting Oxycodone/Acetaminophen 1 tab 06/02/18 06:53 06/08/18 21:46 Percocet 5/325 PO 1 tab Q6H PRN Administration Pain, Moderate (4-6) Sodium Chloride 10 ml 06/02/18 10:00 06/08/18 09:28 Sodium Chloride Flush Syringe 10 Ml IV 10 ml BID BRADY Administration Sodium Chloride 10 ml 06/02/18 06:53 Sodium Chloride Flush Syringe 10 Ml IV PRN PRN LINE FLUSH
[2018-06-09] MEDS: DUONEB *Not for PRN Use IH SCH ×4 (08:47→21:06)
--- NOTE | 2018-06-09 08:54 | Progress Note ---
Assessment and Plan Assessment and plan: Patient is a 88 yo woman with history of OA, hypertension, chronic tachycardia and Tobacco dependency who presented to [facility] ED (first visit in EMR) with left groin pains and inability to ambulate hence the inpatient admission. He was found to have a lytic lesion involving left acetabulum. Patient was seen by oncology, orthopedic surgery,IR and radiation oncology.Patient had Lt acetabular bone lesion biopsy,path positive for squamous cell carcinoma. Radiation oncology started palliative radiation first treatment today. --The left pelvic lytic lesions; s/p biopsy Pathology; squamous cell carcinoma, likely lung primary palliative radiation,first treatment today -- Possible lung cancer versus pneumonia[Empiric antibiotics] possible CT-guided lung mass biopsy, --Urinary tract infection; empiric antibiotics, cultures negative to date --Hypertension; moderate control, continue current antihypertensives and when necessary medications --Hyponatremia; significantly improved, IV hydration and closely monitor electrolytes --SIRS with organ dysfunction; continue current management --Ongoing tobacco use; smoking cessation, nicotine patch as needed --DVT prophylaxis; Lovenox --Full CODE STATUS; Radiation oncology recommendations . Possible DC in 1-2 days with home health Plan of care is reviewed with the patient, and her nurse History Interval history: Patient seen and examined medical records reviewed Palliative radiation first treatment scheduled for today Patient not in acute distress Vital signs reviewed Hospitalist Physical - Constitutional Vitals: Temp Pulse Resp BP Pulse Ox 97.9 F 69 20 150/60 97 06/09/18 08:04 06/09/18 08:04 06/09/18 08:04 06/09/18 08:04 06/09/18 08:04 General appearance: Present: no acute distress, well-nourished - EENT Eyes: Present: PERRL, EOM intact - Neck Neck: Present: supple, normal ROM - Respiratory Respiratory effort: normal Respiratory: bilateral: diminished, negative: rales, rhonchi, wheezing - Cardiovascular Rhythm: regular Heart Sounds: Present: S1 & S2 - Extremities Extremities: no ischemia, No edema - Abdominal General gastrointestinal: soft, non-tender, non-distended, normal bowel sounds - Integumentary Integumentary: Present: clear, warm - Psychiatric Psychiatric: appropriate mood/affect, cooperative - Neurologic Neurologic: CNII-XII intact, moves all extremities Results - Labs CBC & Chem 7: 06/04/18 04:32 06/07/18 05:36 Labs: Laboratory Last Values WBC 10.4 K/mm3 (4.5-11.0) 06/04/18 04:32 RBC 4.55 M/mm3 (3.65-5.03) 06/04/18 04:32 Hgb 12.9 gm/dl (10.1-14.3) 06/04/18 04:32 Hct 38.8 % (30.3-42.9) 06/04/18 04:32 MCV 85 fl (79-97) 06/04/18 04:32 MCH 28 pg (28-32) 06/04/18 04:32 MCHC 33 % (30-34) 06/04/18 04:32 RDW 14.7 % (13.2-15.2) 06/04/18 04:32 Plt Count 373 K/mm3 (140-440) 06/04/18 04:32 Lymph % (Auto) 17.7 % (13.4-35.0) 06/03/18 05:28 [place] % (Auto) 10.5 % (0.0-7.3) H 06/03/18 05:28 Eos % (Auto) 4.0 % (0.0-4.3) 06/03/18 05:28 Baso % (Auto) 1.3 % (0.0-1.8) 06/03/18 05:28 Lymph # 2.0 K/mm3 (1.2-5.4) 06/03/18 05:28 [place] # 1.2 K/mm3 (0.0-0.8) H 06/03/18 05:28 Eos # 0.4 K/mm3 (0.0-0.4) 06/03/18 05:28 Baso # 0.1 K/mm3 (0.0-0.1) 06/03/18 05:28 Seg Neutrophils % 66.5 % (40.0-70.0) 06/03/18 05:28 Seg Neutrophils # 7.4 K/mm3 (1.8-7.7) 06/03/18 05:28 Sodium 136 mmol/L (137-145) L 06/07/18 05:36 Potassium 4.4 mmol/L (3.6-5.0) 06/07/18 05:36 Chloride 102.4 mmol/L (98-107) 06/07/18 05:36 Carbon Dioxide 19 mmol/L (22-30) L 06/07/18 05:36 Anion Gap 19 mmol/L 06/07/18 05:36 BUN 10 mg/dL (7-17) 06/07/18 05:36 Creatinine 0.5 mg/dL (0.7-1.2) L 06/07/18 05:36 Estimated GFR > 60 ml/min 06/07/18 05:36 BUN/Creatinine Ratio 20 % 06/07/18 05:36 Glucose 81 mg/dL (65-100) 06/07/18 05:36 POC Glucose 121 (70-105) H 06/03/18 22:52 Hemoglobin A1c 6.2 % (4-6) H 06/02/18 07:18 Calcium 9.4 mg/dL (8.4-10.2) 06/07/18 05:36 Total Bilirubin 0.40 mg/dL (0.1-1.2) 06/02/18 07:18 Direct Bilirubin < 0.2 mg/dL (0-0.2) 06/01/18 13:30 AST 19 units/L (5-40) 06/02/18 07:18 ALT 30 units/L (7-56) 06/02/18 07:18 Alkaline Phosphatase 122 units/L (35-129) 06/02/18 07:18 Total Protein 7.4 g/dL (6.3-8.2) 06/02/18 07:18 Albumin 3.6 g/dL (3.9-5) L 06/02/18 07:18 Albumin/Globulin Ratio 0.9 % 06/02/18 07:18 Urine Color Yellow (Yellow) 06/01/18 13:10 Urine Turbidity Slightly-cloudy (Clear) 06/01/18 13:10 Urine pH 7.0 (5.0-7.0) 06/01/18 13:10 Ur Specific [place] 1.004 (1.003-1.030) 06/01/18 13:10 Urine Protein <15 mg/dl mg/dL (Negative) 06/01/18 13:10 Urine Glucose (UA) Neg mg/dL (Negative) 06/01/18 13:10 Urine Ketones Tr mg/dL (Negative) 06/01/18 13:10 Urine Blood Neg (Negative) 06/01/18 13:10 Urine Nitrite Neg (Negative) 06/01/18 13:10 Urine Bilirubin Neg (Negative) 06/01/18 13:10 Urine Urobilinogen < 2.0 mg/dL (<2.0) 06/01/18 13:10 Ur Leukocyte Esterase Tr (Negative) 06/01/18 13:10 Urine WBC (Auto) 2.0 /HPF (0.0-6.0) 06/01/18 13:10 Urine RBC (Auto) < 1.0 /HPF (0.0-6.0) 06/01/18 13:10 U Epithel Cells (Auto) 14.0 /HPF (0-13.0) H 06/01/18 13:10 Urine Bacteria (Auto) 1+ /HPF (Negative) 06/01/18 13:10 Nutrition/Malnutrition Assess - Dietary Evaluation Nutrition/Malnutrition Findings: Nutrition Notes Start: 06/08/18 11:43 Freq: Status: Active Protocol: Document 06/08/18 11:43 TW (Rec: 06/08/18 13:56 TW [id number]) Co-Sign 06/08/18 11:43 RM Nutrition Notes Need for Assessment generated from: LOS Initial or Follow up Assessment Current Diagnosis Hypertension Other Pertinent Diagnosis SIRS, UTI, RLL mass Current Diet Regular Labs/Tests Reviewed Pertinent Medications Reviewed Height 5 ft 6 in Weight 68.039 kg [place] Body Weight (kg) 59.09 BMI 24.2 Intake Prior to Admission Poor Weight Status Appropriate Subjective/Other Information Pt screened for LOS. Pt reports having a poor appetite [employer] and post-admission d/t nausea and pain. Pt states she only eats about 50% of meals. Pt denies chewing/ swallowing difficulty, or any allergies. Pt is willing to try ONS. Percent of energy/protein needs met: 79%/43% Burn Absent Trauma Absent GI Symptoms Nausea Food Allergy No Current % PO Poor (25-49%) #1 Nutrition Diagnosis Inadequate oral intake Etiology pain, nausea As Evidenced by Signs and Symptoms pt reporting poor appetite, eating 50% of meals Is patient on ventilator? No Is Patient Ambulatory and/or Out of Bed Yes REE-([place]-St. Jeor-ambulatory/OOB) [ [id number] [id number]] Calculation Used for Recommendations [place]-St Jeor Additional Notes pro needs: 102-116g/day (1.5-1 .7g/kg) fluid: 1mL/kcal Nutrition Intervention Change Diet Order: Continue Regular diet Add Supplement/Snack (indicate name/kcal Ensure Enlive daily /protein ) Provides kCal: 350 Provides Protein (gm) 20 Goal #1 Meet at least 75% of pro needs by PO/ONS intake Goal #2 Wt maintenance Anticipated Discharge Needs: Regular/ Ensure Enlive daily Follow-Up By: 06/13/18 Additional Comments F/U PO and ONS intake
[2018-06-09] MEDS: PEPCID PO SCH ×2 (09:40→21:21)
[2018-06-09] MEDS: DILAUDID IV PRN ×2 (09:40→21:26)
[2018-06-09] MEDS: SODIUM CHLORIDE FLUSH SYRINGE 10 ML IV SCH ×3 (09:41→21:22)
[2018-06-09] MEDS ORDERED: LEVAQUIN PO SCH (10:00)
[2018-06-09] MEDS: PERCOCET 5/325 PO PRN (14:44)
[2018-06-09] MEDS: LOVENOX SUB-Q SCH (21:21)
[2018-06-10] MEDS: DUONEB *Not for PRN Use IH SCH ×2 (08:13→21:43)
[2018-06-10] MEDS: PEPCID PO SCH ×2 (09:24→21:35)
[2018-06-10] MEDS: SODIUM CHLORIDE FLUSH SYRINGE 10 ML IV SCH (09:25)
[2018-06-10] MEDS: ZOFRAN IV PRN (09:26)
[2018-06-10] MEDS: DILAUDID IV PRN (09:53)
[2018-06-10] MEDS: PERCOCET 5/325 PO PRN ×2 (15:47→21:34)
--- NOTE | 2018-06-10 16:28 | Hem/Onc Progress Note ---
Assessment and Plan 1. Lung mass. lung ca - based on bone bx - stage IV - sq - NSCLC 2. Left pelvic lesion causing pain and inability to walk. Radiation Oncology has been consulted. 3. Calcium 10.2, albumin 3.6, slightly elevated calcium. We will follow this trend of same. 4. Pain issues. 5. History of hypertension. 6. We will follow the patient during inpatient stay. I had discussed with Dr. Barrow and he suggested physical therapy evaluation for now. 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 palliative xrt d/w dr Monteiro will follow as OP - pt reluctant for chemo 06/09/2018 pt will be seen as OP to see if any oral agents can be used 06/10 - d/w family reg pt - she will be seen in the clinic - Patient Problems (1) Lytic lesion of bone on x-ray Current Visit: Yes Status: Acute (2) Lung cancer Current Visit: Yes Status: Acute Qualifiers: Laterality: right Subjective Date of service: 06/10/18 Principal diagnosis: sq cell ca - st[place] 4 Interval history: got xrt Objective - Constitutional Vitals: Last Vital Signs Temp 97.4 F L 06/10/18 13:43 Pulse 115 H 06/10/18 13:43 Resp 18 06/10/18 15:47 BP 121/67 06/10/18 13:43 Pulse Ox 97 06/10/18 13:43 Pain Intensity (0-10): 1/10 (hip) General appearance: no acute distress Performance status: 3-limited selfcare - EENT Eyes: EOM intact ENT: clear oral mucosa Lymph node exam: negative cervical - Neck Neck: normal ROM - Respiratory Respiratory effort: Positive: normal Respiratory: bilateral: CTA - Cardiovascular Heart Sounds: Present: S1 & S2 Extremities: No edema - Gastrointestinal General gastrointestinal: Present: soft, non-tender Rectal Exam: deferred - Genitourinary Female genitourinary: Present: deferred - Integumentary Integumentary: warm - Musculoskeletal Musculoskeletal: other (left hip pain) - Psychiatric Psychiatric: appropriate mood/affect Medications & Allergies - Medications Allergies/Adverse Reactions: Allergies No Known Allergies Allergy (Verified 06/01/18 12:28) Home Medications: Home Medications Medication Instructions Recorded Confirmed Last Taken Type Diclofenac EC [Voltaren] 25 mg PO Q8HR 06/01/18 06/01/18 06/01/18 08:00 History HYDROcodone/APAP 5-325 [[place] 1 each PO Q8HR PRN 06/01/18 06/01/18 05/31/18 20:00 History 5/325] chlordiazePOXIDE [Librium] 10 mg PO TID 06/01/18 06/01/18 05/31/18 13:30 History traMADol [Ultram] 75 mg PO Q12HR PRN 06/01/18 06/01/18 04/25/18 History Active Medications: Generic Name Dose Route Start Last Admin Trade Name [place] PRN Reason Stop Dose Admin Acetaminophen 650 mg 06/02/18 06:53 Tylenol PO Q4H PRN Pain MILD(1-3)/Fever >100.5/GAMA Albuterol 2.5 mg 06/02/18 09:21 Proventil IH Q4HRT PRN Shortness Of Breath Albuterol/Ipratropium 1 ampul 06/02/18 14:00 06/10/18 08:13 Duoneb *Not For Prn Use* IH 1 ampul TIDRT BRADY Administration Enoxaparin Sodium 40 mg 06/02/18 22:00 06/09/18 21:21 Lovenox SUB-Q 40 mg QDAY@2200 BRADY Administration Famotidine 10 mg 06/02/18 10:00 06/10/18 09:24 Pepcid PO 10 mg BID BRADY Administration Hydromorphone HCl 0.5 mg 06/02/18 06:53 06/10/18 09:53 Dilaudid IV 0.5 mg Q3H PRN Administration Pain , Severe (7-10) Sodium Chloride 1,000 mls @ 75 mls/hr 06/02/18 08:00 06/08/18 21:43 Nacl 0.9% 1000 Ml IV 100 mls/hr DIRECT BRADY Administration Levofloxacin 750 mg 06/09/18 10:00 06/09/18 09:40 Levaquin PO 750 mg Q48HR BRADY Administration Ondansetron HCl 4 mg 06/02/18 06:53 06/10/18 09:26 Zofran IV 4 mg Q8H PRN Administration Nausea And Vomiting Oxycodone/Acetaminophen 1 tab 06/02/18 06:53 06/10/18 15:47 Percocet 5/325 PO 1 tab Q6H PRN Administration Pain, Moderate (4-6) Sodium Chloride 10 ml 06/02/18 10:00 06/10/18 09:25 Sodium Chloride Flush Syringe 10 Ml IV 10 ml BID BRADY Administration Sodium Chloride 10 ml 06/02/18 06:53 Sodium Chloride Flush Syringe 10 Ml IV PRN PRN LINE FLUSH
--- NOTE | 2018-06-10 17:07 | Progress Note ---
Assessment and Plan Assessment and plan: Patient is a 88 yo woman with history of OA, hypertension, chronic tachycardia and Tobacco dependency was admitted through ER with left groin pains and inability to ambulate , found to have a lytic lesion involving left acetabulum. 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 First palliative radiation treatment yesterday. --The left pelvic lytic lesions; s/p biopsy Pathology; squamous cell carcinoma, likely lung primary palliative radiation,first treatment yesterday --Stage 4 lung cancer: oncology for therapy options after discharge --Urinary tract infection; empiric antibiotics, cultures negative to date dc abx --Hypertension; moderate control, continue current antihypertensives and when necessary medications --Hyponatremia; significantly improved, IV hydration and closely monitor electrolytes --SIRS with organ dysfunction; continue current management --Ongoing tobacco use; smoking cessation, nicotine patch as needed --DVT prophylaxis; Lovenox --Full CODE STATUS; DC home tomorrow with [facility] Plan of care reviewed with the patient and her nurse History Interval history: Patient seen and examined medical records reviewed Patient with stage IV lung cancer on palliative radiotherapy Patient complains of generalized weakness Alert awake oriented, Vital signs reviewed Not in acute distress Hospitalist Physical - Constitutional Vitals: Temp Pulse Resp BP Pulse Ox 97.4 F L 115 H 18 121/67 97 06/10/18 13:43 06/10/18 13:43 06/10/18 15:47 06/10/18 13:43 06/10/18 13:43 General appearance: Present: no acute distress, well-nourished - EENT Eyes: Present: PERRL, EOM intact - Neck Neck: Present: supple, normal ROM - Respiratory Respiratory effort: normal - Cardiovascular Rhythm: regular Heart Sounds: Present: S1 & S2 - Extremities Extremities: no ischemia, No edema - Abdominal General gastrointestinal: soft, non-tender, non-distended, normal bowel sounds - Integumentary Integumentary: Present: clear, warm - Psychiatric Psychiatric: appropriate mood/affect, cooperative - Neurologic Neurologic: moves all extremities Results - Labs CBC & Chem 7: 06/04/18 04:32 06/07/18 05:36 Labs: Laboratory Last Values WBC 10.4 K/mm3 (4.5-11.0) 06/04/18 04:32 RBC 4.55 M/mm3 (3.65-5.03) 06/04/18 04:32 Hgb 12.9 gm/dl (10.1-14.3) 06/04/18 04:32 Hct 38.8 % (30.3-42.9) 06/04/18 04:32 MCV 85 fl (79-97) 06/04/18 04:32 MCH 28 pg (28-32) 06/04/18 04:32 MCHC 33 % (30-34) 06/04/18 04:32 RDW 14.7 % (13.2-15.2) 06/04/18 04:32 Plt Count 373 K/mm3 (140-440) 06/04/18 04:32 Lymph % (Auto) 17.7 % (13.4-35.0) 06/03/18 05:28 [place] % (Auto) 10.5 % (0.0-7.3) H 06/03/18 05:28 Eos % (Auto) 4.0 % (0.0-4.3) 06/03/18 05:28 Baso % (Auto) 1.3 % (0.0-1.8) 06/03/18 05:28 Lymph # 2.0 K/mm3 (1.2-5.4) 06/03/18 05:28 [place] # 1.2 K/mm3 (0.0-0.8) H 06/03/18 05:28 Eos # 0.4 K/mm3 (0.0-0.4) 06/03/18 05:28 Baso # 0.1 K/mm3 (0.0-0.1) 06/03/18 05:28 Seg Neutrophils % 66.5 % (40.0-70.0) 06/03/18 05:28 Seg Neutrophils # 7.4 K/mm3 (1.8-7.7) 06/03/18 05:28 Sodium 136 mmol/L (137-145) L 06/07/18 05:36 Potassium 4.4 mmol/L (3.6-5.0) 06/07/18 05:36 Chloride 102.4 mmol/L (98-107) 06/07/18 05:36 Carbon Dioxide 19 mmol/L (22-30) L 06/07/18 05:36 Anion Gap 19 mmol/L 06/07/18 05:36 BUN 10 mg/dL (7-17) 06/07/18 05:36 Creatinine 0.5 mg/dL (0.7-1.2) L 06/07/18 05:36 Estimated GFR > 60 ml/min 06/07/18 05:36 BUN/Creatinine Ratio 20 % 06/07/18 05:36 Glucose 81 mg/dL (65-100) 06/07/18 05:36 POC Glucose 121 (70-105) H 06/03/18 22:52 Hemoglobin A1c 6.2 % (4-6) H 06/02/18 07:18 Calcium 9.4 mg/dL (8.4-10.2) 06/07/18 05:36 Total Bilirubin 0.40 mg/dL (0.1-1.2) 06/02/18 07:18 Direct Bilirubin < 0.2 mg/dL (0-0.2) 06/01/18 13:30 AST 19 units/L (5-40) 06/02/18 07:18 ALT 30 units/L (7-56) 06/02/18 07:18 Alkaline Phosphatase 122 units/L (35-129) 06/02/18 07:18 Total Protein 7.4 g/dL (6.3-8.2) 06/02/18 07:18 Albumin 3.6 g/dL (3.9-5) L 06/02/18 07:18 Albumin/Globulin Ratio 0.9 % 06/02/18 07:18 Urine Color Yellow (Yellow) 06/01/18 13:10 Urine Turbidity Slightly-cloudy (Clear) 06/01/18 13:10 Urine pH 7.0 (5.0-7.0) 06/01/18 13:10 Ur Specific [place] 1.004 (1.003-1.030) 06/01/18 13:10 Urine Protein <15 mg/dl mg/dL (Negative) 06/01/18 13:10 Urine Glucose (UA) Neg mg/dL (Negative) 06/01/18 13:10 Urine Ketones Tr mg/dL (Negative) 06/01/18 13:10 Urine Blood Neg (Negative) 06/01/18 13:10 Urine Nitrite Neg (Negative) 06/01/18 13:10 Urine Bilirubin Neg (Negative) 06/01/18 13:10 Urine Urobilinogen < 2.0 mg/dL (<2.0) 06/01/18 13:10 Ur Leukocyte Esterase Tr (Negative) 06/01/18 13:10 Urine WBC (Auto) 2.0 /HPF (0.0-6.0) 06/01/18 13:10 Urine RBC (Auto) < 1.0 /HPF (0.0-6.0) 06/01/18 13:10 U Epithel Cells (Auto) 14.0 /HPF (0-13.0) H 06/01/18 13:10 Urine Bacteria (Auto) 1+ /HPF (Negative) 06/01/18 13:10 Nutrition/Malnutrition Assess - Dietary Evaluation Nutrition/Malnutrition Findings: Nutrition Notes Start: 06/08/18 11:43 Freq: Status: Active Protocol: Document 06/08/18 11:43 TW (Rec: 06/08/18 13:56 TW [id number]) Co-Sign 06/08/18 11:43 RM Nutrition Notes Need for Assessment generated from: LOS Initial or Follow up Assessment Current Diagnosis Hypertension Other Pertinent Diagnosis SIRS, UTI, RLL mass Current Diet Regular Labs/Tests Reviewed Pertinent Medications Reviewed Height 5 ft 6 in Weight 68.039 kg [place] Body Weight (kg) 59.09 BMI 24.2 Intake Prior to Admission Poor Weight Status Appropriate Subjective/Other Information Pt screened for LOS. 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 Pt states she only eats about 50% of meals. Pt denies chewing/ swallowing difficulty, or any allergies. Pt is willing to try ONS. Percent of energy/protein needs met: 79%/43% Burn Absent Trauma Absent GI Symptoms Nausea Food Allergy No Current % PO Poor (25-49%) #1 Nutrition Diagnosis Inadequate oral intake Etiology pain, nausea As Evidenced by Signs and Symptoms pt reporting poor appetite, eating 50% of meals Is patient on ventilator? No Is Patient Ambulatory and/or Out of Bed Yes REE-([place]-. Jeor-ambulatory/OOB) [ [id number] [id number]] Calculation Used for Recommendations [facility] Additional Notes pro needs: 102-116g/day (1.5-1 .7g/kg) fluid: 1mL/kcal Nutrition Intervention Change Diet Order: Continue Regular diet Add Supplement/Snack (indicate name/kcal Ensure Enlive daily /protein ) Provides kCal: 350 Provides Protein (gm) 20 Goal #1 Meet at least 75% of pro needs by PO/ONS intake Goal #2 Wt maintenance Anticipated Discharge Needs: Regular/ Ensure Enlive daily Follow-Up By: 06/13/18 Additional Comments F/U PO and ONS intake
[2018-06-10] MEDS: LOVENOX SUB-Q SCH (21:35)
[2018-06-11] MEDS: DUONEB *Not for PRN Use IH SCH (08:00)
--- NOTE | 2018-06-11 08:10 | Discharge Summary ---
Providers - Providers Date of Admission: 06/01/18 16:30 Date of discharge: 06/11/18 Attending physician: LILLY JUDD 06/02/18 06:53 Consult to Physician [CONS] Routine Comment: called office/ marlena Consulting Provider: ADRIANNA BURNS Physician Instructions: Reason For Exam: l hip lytic lesion 06/02/18 06:55 Consult to Physician [CONS] Routine Comment: called office/marlena Consulting Provider: RACHEL SEE Physician Instructions: Reason For Exam: lung mass 06/02/18 07:38 Consult to Physician [CONS] Routine Comment: called office/marlena Consulting Provider: JOSE MCGEE Physician Instructions: Please call him and make sure he gets this consult Reason For Exam: Evaluation for XRT treatment 06/02/18 13:43 Consult to Interventional Radiology [CONS] Routine Consulting Provider: HERBIE TROY Reason For Exam: lung mass - bx Place consult to:: overhead page Notified:: yes Was contact made?: Yes If yes, spoke with:: dr. mehta Time called:: 16:25 Comment:: marlena 06/03/18 12:59 Occupational Therapy Evaluate and Treat [CONS] Routine Comment: Reason For Exam: ADLs evaluation Physical Therapy Evaluation and Treat [CONS] Routine Comment: Reason For Exam: gait evaluation/ambulatory dysfunction Primary care physician: HENRIETTA ANGEL Hospitalization Reason for admission: Left groin pain/inability to ambulate/lytic bone lesion Condition: Poor Pertinent studies: CT abdomen and pelvis; large lytic lesion involving left posterior acetabulum ischium to the ischial tuberosity, metastatic neoplastic process suspected, Right lung base masslike consolidation lower lobe posteriorly, advised percutaneous biopsy, And PET scan X-ray pelvis; noted and may be acute, left ischial lytic lesion Bone survey; negative study CT chest; nonspecific subpleural consolidation with irregular margins in the posterior right lower lobe may reflect rounded atelectasis, pneumonia differential include neoplasm , Right upper lobe and right lower lobe nonspecific 5 mm pulmonary nodules, Abdominal aortic aneurysm, follow-up abdominal ultrasound [follow-up with hem/ onc And primary care physician ; Procedures: CT-guided bone biopsy Palliative radiation 1 Hospital course: 88 yo white female patient with history of OA, hypertension, chronic tachycardia and Tobacco dependency was admitted through ER with left groin pains and inability to ambulate , and workup patient was found to have a lytic lesion involving left acetabulum. underwent bone biopsy, pathology revealed Sq cell ca , possibly metastatic lesion with lung Ca as primary [stage IV], ortho evaluated, recommended physical therapy, oncology, evaluated advised palliative radiation and possible chemotherapy . Radiation onc evaluated the pt and patient received 1 dose of palliative radiation. Patient reports that she does not want chemotherapy, however advised her to discuss with family and inform her decision with the oncologist upon follow- up Today patient is comfortable, no new symptoms, vital signs stable, physical examination no new changes Cleared by oncology for discharge and follow up in the office for further evaluation and management Patient is hemodynamically stable with guarded prognosis. Discharge diagnosis: --The left pelvic lytic lesions; s/p biopsy Pathology; squamous cell carcinoma, likely lung primary Received 1 dose palliative radiation,first treatment yesterday --Stage 4 lung cancer: f/u oncology for therapy options after discharge --Urinary tract infection; empiric antibiotics, cultures negative to date dc abx --Hypertension; well controlled --Hyponatremia; significantly improved, on IV hydration --SIRS with organ dysfunction; received empiric antibiotics --Ongoing tobacco use; smoking cessation, nicotine patch as needed --Full code Patient is discharged with home health services Patient will follow up hematology oncology Disposition: [id number] HOME UNDER HOME [facility] Time spent for discharge: 32 min Core Measure Documentation - Palliative Care Palliative Care/ Comfort Measures: Not Applicable - Core Measures Any of the following diagnoses?: none Exam - Constitutional Vitals: Temp Pulse Resp BP Pulse Ox 97.6 F 82 18 140/62 93 06/11/18 02:19 06/11/18 02:19 06/11/18 02:19 06/11/18 02:06/11/18 02:19 General appearance: Present: no acute distress, well-nourished - EENT Eyes: Present: PERRL, EOM intact - Neck Neck: Present: supple, normal ROM - Respiratory Respiratory effort: normal Respiratory: bilateral: diminished, rhonchi, negative: rales, wheezing - Cardiovascular Rhythm: regular Heart Sounds: Present: S1 & S2 - Extremities Extremities: no ischemia, No edema - Abdominal General gastrointestinal: Present: soft, non-tender, normal bowel sounds - Integumentary Integumentary: Present: clear, warm - Musculoskeletal Musculoskeletal: generalized weakness - Psychiatric Psychiatric: appropriate mood/affect, cooperative - Neurologic Neurologic: moves all extremities Plan Activity: advance as tolerated, fall precautions Diet: regular Special Instructions: smoking cessation, physical therapy Additional Instructions: Fall precautions. Smoking cessation Follow up with: HENRIETTA ANGEL MD [Primary Care Provider] - 3-5 Days RACHEL SEE MD [Staff Physician] - 7 Days Prescriptions: HYDROcodone/APAP 5-325 [Left Hand 5-325 mg TAB] 1 each PO BID PRN #20 tablet PRN Reason: Pain
[2018-06-11] MEDS: PERCOCET 5/325 PO PRN (09:58)
[2018-06-11] MEDS: PEPCID PO SCH (09:59)
[2018-06-11] MEDS: SODIUM CHLORIDE FLUSH SYRINGE 10 ML IV SCH (10:01)
[2018-06-11 13:49] VITALS: BP 127/67
== END 2018-06-11 12:24 | disposition home health service (06) | DRG 477 ==
LOC: ED 11:56 → 2B-ACE 16:30
PROVIDERS: ADMIT Internal Medicine; ATTEND Internal Medicine
PROC: 0QB43ZX Excision of Right Acetabulum, Percutaneous Approach, Diagnostic (ICD-10-PCS; principal; 2018-06-06)
DX: C79.51 Secondary malignant neoplasm of bone (principal); R65.11 Systemic inflammatory response syndrome (SIRS) of non-infectious origin with acute organ dysfunction; J18.9 Pneumonia, unspecified organism; C34.91 Malignant neoplasm of unspecified part of right bronchus or lung; E87.2 Acidosis; E87.1 Hypo-osmolality and hyponatremia; N39.0 Urinary tract infection, site not specified; I10 Essential (primary) hypertension; E86.0 Dehydration; Z90.49 Acquired absence of other specified parts of digestive tract; Z90.89 Acquired absence of other organs; Z82.49 Family history of ischemic heart disease and other diseases of the circulatory system; Z71.6 Tobacco abuse counseling
CPT/HCPCS: 36415; 71260; 72170; 74177; 77012; 77074; 80048; 80053; 80076; 81001; 82962; 83036; 85025; 85027; 87086; 88173; 88305; 88307; 88333; 88341; 88342; 90686; 94640; G0378; J1170; J1650; J1956; J2250; J2405; J3010; J7030; J7040; Q9967

== ENCOUNTER 2018-07-06 10:36 | Outpatient (CLI) | payer MEDICARE ==
--- NOTE | 2018-07-07 11:10 | PET Report ---
PET/CT:07/06/18 10:36:00 CLINICAL: Lytic lesion of the pelvis and left hip and a right lower lobe lung mass. RADIOPHARMACEUTICAL: 14.067mCi F18-FDG. COMPARISON: CT chest 06/02/[address] abdomen and pelvis 06/01/18 TECHNIQUE- Following intravenous injection of F-18 FDG and an approximately 60 minute uptake period, CT and PET images from the mid skull to the upper thighs were acquired with the patient in the fasted state. No contrast was administered. The CT protocol used for this PET CT study is designed for attenuation correction and anatomic localization of PET abnormalities. This natural resources technician CT is not desired to produce and cannot replace, [id number]-ik-crd-art diagnostic CT scans with specific imaging protocols for different body parts and indications. Plasma glucose at the time of this test: 107g/dl. The standardized uptake values (SUV) are normalized to patient body weight and indicate the highest activity concentration (SUV max) in a given disease site. FINDINGS: Brain--Physiologic FDG uptake in the visualized regions of the brain. Neck--Physiologic FDG uptake in mucosal structures. No mass or lymphadenopathy. Chest--Physiologic FDG uptake in mediastinal blood pool and myocardium. Lungs--An oval FDG avid right lower lobe lung mass contiguous to the pleura measures 3.0 x 1.8 cm with SUV 14.5. A 5 mm irregular shaped non-FDG avid peripheral right lower lobe nodular opacity and a non-FDG avid 5 mm irregular shaped right upper lobe groundglass opacity. No other lung nodule or mass. Pleura/pericardium--FDG uptake in the pleura adjacent to the right lower lobe lung mass. No pleural effusion. Thoracic nodes--No abnormal uptake. Hepatobiliary--No abnormal uptake. Liver background SUV mean, as a reference for comparing FDG studies, is 5.2 . No liver mass. Spleen--No abnormal uptake. Pancreas--No abnormal uptake. The pancreas is atrophic. Adrenal Glands--No abnormal uptake. Kidneys/Ureters/Bladder--No abnormal uptake. Abdominopelvic Nodes--No abnormal uptake. Bowel/Peritoneum/Mesentery--No abnormal uptake. Pelvic organs--No abnormal uptake. Bones/Soft Tissues--A central FDG avid lytic lesion of the C5 vertebral body measures approximately 2.5 x 1.3 cm with SUV 13.9. The posterior wall of the vertebral body is destroyed. However, no obvious extension into the spinal canal. Lytic destruction of the left posterior acetabulum and left ischium. The FDG avid mass with SUV 23.2 measures 8.2 x 5.4 x 5.1 cm. Mass does not extend to the left femoral head. There is also a transverse fracture of the left anterior pubic ramus with mild callus at the fracture site. There is also a subacute fracture of the left posterior pubic ramus with callus at the fracture site. IMPRESSION- 1. A 3 cm right lower lobe FDG avid lung cancer and no other suspicious lung lesions. 2. 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 The lesion destroys the posterior wall of vertebral body and there is risk of both collapse of the vertebral body and extension of tumor into the spinal canal. 3. Lytic metastases involving the left posterior acetabulum and left ischium. 4. Subacute insufficiency fractures of the left anterior posterior pubic rami. 5. No evidence of ranjeet metastasis or hepatic metastasis. I discussed the C5 vertebral body metastasis with Dr. Sanches on 07/07/18 at approximately 10:45 AM.
== END 2018-07-06 10:37 | disposition home or self-care (01) ==
LOC: PET 10:36
PROVIDERS: ATTEND Internal Medicine Hematology & Oncology
DX: C34.80 Malignant neoplasm of overlapping sites of unspecified bronchus and lung (principal); I10 Essential (primary) hypertension; Z90.49 Acquired absence of other specified parts of digestive tract; Z87.891 Personal history of nicotine dependence
CPT/HCPCS: 78815; 82962; A9552

== ENCOUNTER 2018-07-07 14:31 | Emergency (ER) | payer MEDICARE ==
--- NOTE | 2018-07-07 14:46 | Emergency Department Report ---
Chief Complaint: Recheck/Abnormal Lab/Rx Stated Complaint: ABNORMAL LABS/DR REFERRAL Time Seen by Provider: 07/07/18 14:42 - HPI History of Present Illness: This is a 88 y.o. female that was sent to the ED from Dr. Verónica Amin [facility]. Patient received a call stating PET scan performed yesterday came back abnormal and she needed to get to the nearest ER for further evaluation. - Exam Vital Signs: Vital Signs 07/07/18 14:43 Temperature 97.6 F Pulse Rate 127 H Respiratory 22 Rate Blood Pressure 130/64 O2 Sat by Pulse 96 Oximetry MSE screening note: Focused history and physical exam performed. Due to findings the following was ordered: labs Main ED for further evaluation ED Disposition for MSE Condition: Stable
[2018-07-07 15:19] LABS: Basophils # (Auto) 0.2 K/mm3 (0.0-0.1); Basophils % (Auto) 1.4 % (0.0-1.8); Eosinophils # (Auto) 0.1 K/mm3 (0.0-0.4); Eosinophils % (Auto) 1.3 % (0.0-4.3); Hematocrit 37.6 % (30.3-42.9); Hemoglobin 12.9 gm/dl (10.1-14.3); Lymphocytes # (Auto) 2.5 K/mm3 (1.2-5.4); Lymphocytes % (Auto) 23.3 % (13.4-35.0); Mean Corpuscular HGB Conc 34 % (30-34); Mean Corpuscular Volume 82 fl (79-97); Monocytes # (Auto) 0.9 K/mm3 (0.0-0.8); Monocytes % (Auto) 8.2 % (0.0-7.3); Platelet Count 490 K/mm3 (140-440); Red Blood Count 4.58 M/mm3 (3.65-5.03); Red Cell Distribution Width 14.7 % (13.2-15.2)
[2018-07-07 15:41] LABS: Alanine Aminotransferase 11 units/L (7-56); Albumin 3.3 g/dL (3.9-5); BUN/Creatinine Ratio 23; Blood Urea Nitrogen 9 mg/dL (7-17); Calcium 8.9 mg/dL (8.4-10.2); Hemolysis Index 4
--- NOTE | 2018-07-07 16:14 | Emergency Department Report ---
ED General Adult HPI - General Chief complaint: Recheck/Abnormal Lab/Rx Stated complaint: ABNORMAL LABS/DR REFERRAL Time Seen by Provider: 07/07/18 16:05 Source: patient Mode of arrival: Wheelchair Limitations: Physical Limitation - History of Present Illness Initial comments: Patient is an 88-year-old female that presents emergency room with complaints of abnormal PET scan. Patient states she had a PET scan today and was sent here by her oncologist, Dr. Sanches for further evaluation and transfer to a neurosurgical hospital. Patient was found to have a lytic lesion on C5. Patient denies neck pain. Patient denies changes in sensation in her arms and hands. Patient denies chest pain shortness of breath. Patient's only complaint is 10 out of 10 left hip pain. -: Sudden Severity scale (0 -10): 10 Quality: stabbing Consistency: constant Improves with: medication, rest Worsens with: movement Associated Symptoms: denies: confusion, chest pain, cough, diaphoresis, fev er/chills, headaches, loss of appetite, malaise, nausea/vomiting, rash, seizure, shortness of breath, syncope, weakness Treatments Prior to Arrival: none, other - Related Data Home Medications Medication Instructions Recorded Confirmed Last Taken Diclofenac EC [Voltaren] 25 mg PO Q8HR 06/01/18 06/01/18 06/01/18 08:00 traMADol [Ultram 50 MG tab] 75 mg PO Q12HR PRN 06/01/18 06/01/18 04/25/18 Previous Rx's Medication Instructions Recorded Last Taken Type HYDROcodone/APAP 5-325 [[place] 1 each PO BID PRN #20 tablet 06/11/18 Unknown Rx 5-325 mg TAB] Allergies Allergy/AdvReac Type Severity Reaction Status Date / Time No Known Allergies Allergy Verified 06/01/18 12:28 ED Review of Systems ROS: Stated complaint: ABNORMAL LABS/DR REFERRAL Other details as noted in HPI Constitutional: denies: chills, fever Eyes: denies: eye pain, eye discharge, vision change ENT: denies: ear pain, throat pain Respiratory: denies: cough, shortness of breath, wheezing Cardiovascular: denies: chest pain, palpitations Endocrine: no symptoms reported Gastrointestinal: denies: abdominal pain, nausea, diarrhea Genitourinary: denies: urgency, dysuria, discharge Musculoskeletal: denies: back pain, joint swelling, arthralgia Skin: denies: rash, lesions Neurological: denies: headache, weakness, paresthesias Psychiatric: denies: anxiety, depression Hematological/Lymphatic: denies: easy bleeding, easy bruising ED Past Medical Hx - Past Medical History Previous Medical History?: Yes Hx Hypertension: Yes Hx HIV: No Additional medical history: Lung cancer with metastatic disease - Surgical History Past Surgical History?: Yes Hx Cholecystectomy: Yes Hx Appendectomy: Yes Additional Surgical History: Hx of tachycardia. - Family History Family history: no significant - Social History Smoking Status: Former Smoker Substance Use Type: None - Medications Home Medications: Home Medications Medication Instructions Recorded Confirmed Last Taken Type Diclofenac EC [Voltaren] 25 mg PO Q8HR 06/01/18 06/01/18 06/01/18 08:00 History traMADol [Ultram 50 MG tab] 75 mg PO Q12HR PRN 06/01/18 06/01/18 04/25/18 History HYDROcodone/APAP 5-325 [[place] 1 each PO BID PRN #20 tablet 06/11/18 Unknown Rx 5-325 mg TAB] ED Physical Exam - General Limitations: Physical Limitation General appearance: alert, in no apparent distress - Head Head exam: Present: atraumatic, normocephalic - Eye Eye exam: Present: normal appearance, PERRL Pupils: Present: normal accommodation - ENT ENT exam: Present: mucous membranes moist - Neck Neck exam: Present: normal inspection, other (patient placed in c-collar). Absent: tenderness - Respiratory Respiratory exam: Present: normal lung sounds bilaterally. Absent: respiratory distress - Cardiovascular Cardiovascular Exam: Present: regular rate, normal rhythm. Absent: systolic murmur, diastolic murmur, rubs, gallop - GI/Abdominal GI/Abdominal exam: Present: soft, normal bowel sounds - Rectal Rectal exam: Present: deferred - Extremities Exam Extremities exam: Present: normal inspection - Back Exam Back exam: Present: normal inspection - Neurological Exam Neurological exam: Present: alert, oriented X3 - Psychiatric Psychiatric exam: Present: normal affect, normal mood - Skin Skin exam: Present: warm, dry, intact, normal color. Absent: rash ED Course Vital Signs 07/07/18 07/07/18 07/07/18 14:43 15:33 19:20 Temperature 97.6 F 97.8 F 98.5 F Pulse Rate 127 H 101 H 68 Respiratory 22 18 Rate Blood Pressure 130/64 Blood Pressure 131/68 141/68 [Right] O2 Sat by Pulse 96 100 100 Oximetry - Reevaluation(s) Reevaluation #1: Initial evaluation done. That scan was reviewed. On PET scan patient noted to have a lytic lesion at C5 with erosion of vertebral body and mass on the spinal cord eroding into the spinal cord. PET scan reviewed. Patient began discussed with family. We'll consult [facility] 07/07/18 16:05 Discussed plan of care and transfer with patient and family. Both agree with pl an of care. We'll change treatment when necessary. Patient will be given pain medication as needed. Patient states her left hip pain is improving because she took a Percocet just prior to arrival. 07/07/18 17:02 Patient remained in c-collar. Patient's pain has improved. Patient will be given pain medication as needed. Patient is awaiting transport to [place]. 07/07/18 17:32 Patient ground transportation is arrived to take patient to [place] 07/07/18 20:28 - Consultations Consultation #1: Call center for [facility] consulted 07/07/18 16:30 Patient has been accepted by Dr. Lopes, neurosurgery to be transported to [facility] once a bed becomes available. Dr. Lopes agrees with current plan of care and that the patient should remain in the already placed C collar. Dr. Neumann states she will do all the imaging there but send PET scan and any imaging we have done here in the past. 07/07/18 16:55 ED Medical Decision Making - Lab Data Result diagrams: 07/07/18 15:00 07/07/18 15:00 - Radiology Data Radiology results: report reviewed ET/CT:07/06/18 10:36:00 CLINICAL: Lytic lesion of the pelvis and left hip and a right lower lobe lung mass. RADIOPHARMACEUTICAL: 14.067mCi F18-FDG. COMPARISON: CT chest 06/02/[address] abdomen and pelvis 06/01/18 TECHNIQUE- Following intravenous injection of F-18 FDG and an approximately 60 minute uptake period, CT and PET images from the mid skull to the upper thighs were acquired with the patient in the fasted state. No contrast was administered. The CT protocol used for this PET CT study is designed for attenuation correction and anatomic localization of PET abnormalities. This cutter inspector CT is not desired to produce and cannot replace, [id number]-art diagnostic CT scans with specific imaging protocols for different body parts and indications. Plasma glucose at the time of this test: 107g/dl. The standardized uptake values (SUV) are normalized to patient body weight and indicate the highest activity concentration (SUV max) in a given disease site. FINDINGS: Brain--Physiologic FDG uptake in the visualized regions of the brain. Neck--Physiologic FDG uptake in mucosal structures. No mass or lymphadenopathy. Chest--Physiologic FDG uptake in mediastinal blood pool and myocardium. Lungs--An oval FDG avid right lower lobe lung mass contiguous to the pleura measures 3.0 x 1.8 cm with SUV 14.5. A 5 mm irregular shaped non-FDG avid peripheral right lower lobe nodular opacity and a non-FDG avid 5 mm irregular shaped right upper lobe groundglass opacity. No other lung nodule or mass. Pleura/pericardium--FDG uptake in the pleura adjacent to the right lower lobe lung mass. No pleural effusion. Thoracic nodes--No abnormal uptake. Hepatobiliary--No abnormal uptake. Liver background SUV mean, as a reference for comparing FDG studies, is 5.2 . No liver mass. Spleen--No abnormal uptake. Pancreas--No abnormal uptake. The pancreas is atrophic. Adrenal Glands--No abnormal uptake. Kidneys/Ureters/Bladder--No abnormal uptake. Abdominopelvic Nodes--No abnormal uptake. Bowel/Peritoneum/Mesentery--No abnormal uptake. Pelvic organs--No abnormal uptake. Bones/Soft Tissues--A central FDG avid lytic lesion of the C5 vertebral body measures approximately 2.5 x 1.3 cm with SUV 13.9. The posterior wall of the vertebral body is destroyed. However, no obvious extension into the spinal canal. Lytic destruction of the left posterior acetabulum and left ischium. The FDG avid mass with SUV 23.2 measures 8.2 x 5.4 x 5.1 cm. Mass does not extend to the left femoral head. There is also a transverse fracture of the left anterior pubic ramus with mild callus at the fracture site. There is also a subacute fracture of the left posterior pubic ramus with callus at the fracture site. IMPRESSION- 1. A 3 cm right lower lobe FDG avid lung cancer and no other suspicious lung lesions. 2. 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 The lesion destroys the posterior wall of vertebral body and there is risk of both collapse of the vertebral body and extension of tumor into the spinal canal. 3. Lytic metastases involving the left posterior acetabulum and left ischium. 4. Subacute insufficiency fractures of the left anterior posterior pubic rami. 5. No evidence of ranjeet metastasis or hepatic metastasis. I discussed the C5 vertebral body metastasis with Dr. Sanches on 07/07/18 at approximately 10:45 AM. - Medical Decision Making Patient is an 88-year-old female that presents emergency room for an abnormal PET scan. Patient was sent here because the PET scan showed a C5 fracture and lytic lesion with encroachment onto the spinal cord. Patient's PET scan was reviewed. Patient will require a neurosurgeon. [facility] was cons ulted and has accepted the patient. Patient will be transferred via ground EMS. Patient was placed in a c-collar to maintain C-spine precautions. Patient's labs were done were unremarkable. - Differential Diagnosis abnormal PET scan. C-spine fracture. Lung cancer metastases Critical Care Time: Yes Critical care attestation.: If time is entered above; I have spent that time in minutes in the direct care of this critically ill patient, excluding procedure time. Critical Care Time: 45 minutes. ED Disposition Clinical Impression: Lytic lesion of bone on x-ray, Cervical spinal mass Lung cancer Qualifiers: Laterality: right Lung location: lower lobe of lung Qualified Code(s): C34.31 - Malignant neoplasm of lower lobe, right bronchus or lung Closed cervical spine fracture Qualifiers: Encounter type: initial encounter Cervical vertebra fracture level: C5 Fracture morphology: unspecified fracture morphology Fracture alignment: nondisplaced Qualified Code(s): S12.401A - Unspecified nondisplaced fracture of fifth cervical vertebra, initial encounter for closed fracture Disposition: DC/TX-70 ANOTHER TYPE HLTHCARE Is pt being admited?: No Does the pt Need Aspirin: No Condition: Critical Time of Disposition: 18:00
[2018-07-07] MEDS ORDERED: DILAUDID ONE (17:49)
[2018-07-07 19:58] VITALS: BP 141/68
== END 2018-07-07 20:29 | disposition other institution (70) ==
LOC: ED 14:31
DX: S12.401A Unspecified nondisplaced fracture of fifth cervical vertebra, initial encounter for closed fracture (principal); C34.31 Malignant neoplasm of lower lobe, right bronchus or lung; I10 Essential (primary) hypertension; G40.909 Epilepsy, unspecified, not intractable, without status epilepticus; Z87.891 Personal history of nicotine dependence
CPT/HCPCS: 36415; 80053; 85025; 99291; J1170